=== PATIENT | female | born 1935 | race Caucasian/White ===

== ENCOUNTER 2018-12-22 21:43 | Inpatient (IN) | payer MEDICARE, OTHER ==
[~2018-12-22] VITALS: Ht 165.1 cm; Wt 79.8 kg
[2018-12-22 21:50] VITALS: BP 128/55
--- NOTE | 2018-12-22 21:50 | NUR ---
ED Nurse Note: Pt BIBA for complaint of right sided flank pain 04/25. Pt states pain is sharp and radiates to upper quadrant of abdomen, right under breast. Pt was given norco before brought into ER, state pain has improved slightly with that. Pt on 3L NC, VSS. Showing no signs of distress. Will continue to monitor.
--- NOTE | 2018-12-22 22:17 | Emergency Room Report ---
History of Present Illness General Chief Complaint: Chest Pain Source: Patient, Medical Record Present Illness HPI Patient is an 83-year-old female who presented after increased left-sided stabbing pain. Patient reports having worsening pain with a supine position. This is been present for 4 days. Patient reports having recent weight loss as well as history of chronic pain. She reports having bilateral leg swelling constantly. She states this is unchanged. She denies any fever. She reports having normal bowel movements but has been intermittently constipated. She denies any vomiting or diarrhea. Patient reports having multiple allergies to medications. Allergies: Coded Allergies: AMPICILLIN (Verified Allergy, Unknown, 12/22/18) CARBAMAZEPINE (Verified Allergy, Unknown, 12/22/18) CEPHALEXIN (Verified Allergy, Unknown, 12/22/18) GABAPENTIN (Verified Allergy, Unknown, 12/22/18) HYDROCHLOROTHIAZIDE (Verified Allergy, Unknown, 12/22/18) LOVASTATIN (Verified Allergy, Unknown, 12/22/18) MEXILETINE (Verified Allergy, Unknown, 12/22/18) NEOMYCIN (Verified Allergy, Unknown, 12/22/18) PENICILLINS (Verified Allergy, Unknown, 12/22/18) SULFAMETHOXAZOLE (Verified Allergy, Unknown, 12/22/18) TRIMETHOPRIM (Verified Allergy, Unknown, 12/22/18) VANCOMYCIN (Verified Allergy, Unknown, 12/22/18) Patient History Past Medical History: see triage record Reviewed Nursing Documentation: PMH: Agreed; PSxH: Agreed Nursing Documentation-PMH Hx Hypertension: Yes Hx Asthma: Yes Hx Neurological Problems: Yes - Trigeminal Neuralgia Review of Systems All Other Systems: negative except mentioned in HPI Physical Exam Vital Signs Date Time Temp Pulse Resp B/P (MAP) Pulse Ox O2 Delivery O2 Flow Rate FiO2 12/22/18 21:44 98.1 84 18 95 Room Air Sp02 EP Interpretation: reviewed, normal General Appearance: normal inspection, alert, GCS 15, Chronically Ill Head: atraumatic ENT: normal ENT inspection, hearing grossly normal, normal voice Neck: normal inspection, full range of motion, supple, no bony tend Respiratory: normal inspection, lungs clear, normal breath sounds, no respiratory distress, no retraction, no wheezing Cardiovascular #1: regular rate, rhythm, no edema Gastrointestinal: normal inspection, normal bowel sounds, non tender, soft, no guarding, no hernia Genitourinary: no CVA tenderness Musculoskeletal: normal inspection, back normal, normal range of motion Neurologic: normal inspection, alert, oriented x3, responsive, supervisor record press III-XII nml as tested, speech normal Psychiatric: normal inspection, judgement/insight normal, mood/affect normal Skin: normal inspection, normal color, no rash Medical Decision Making Diagnostic Impression: Primary Impression: Pulmonary embolism ER Course Patient presented for chest pain. Differential diagnoses included but was not limited to pneumonia, unstable angina, pulmonary embolism among others. Because of complexity of patient's case laboratory testing and imaging studies were ordered.Patient's laboratory testing was notable for normal white blood count and negative troponin. Patient was noted to have normal pulse oximetry. she was not noted to be tachycardic CT imaging was ordered due to patient's concerning pain and bilateral leg swelling. CT imaging read by radiology showed pulmonary embolism which was nonobstructing. Patient was given Lovenox. patient was noted to be hemodynamically stable. She does not show any evidence of need for thrombolyzes at this time. Dr. Shi was contacted for for inpatient management Labs Test 12/22/18 22:06 12/23/18 00:45 12/23/18 04:45 Prothrombin Time 10.8 SEC (9.30-11.50) Prothromb Time International Ratio 1.0 (0.9-1.1) Activated Partial Thromboplast Time 28 SEC (23-33) D-Dimer 2.53 mg/L FEU (0.00-0.49) Lactic Acid Level 0.80 mmol/L (0.4-2.0) Total Creatine Kinase 64 U/L (26-308) Creatine Kinase MB < 0.5 NG/ML (0.0-3.6) Creatine Kinase MB Relative Index 0.7 Urine Color Yellow Urine Appearance Slightly cloudy Urine pH 7 (4.5-8.0) Urine Specific [place] 1.005 (1.005-1.035) Urine Protein Negative (NEGATIVE) Urine Glucose (UA) Negative (NEGATIVE) Urine Ketones Negative (NEGATIVE) Urine Blood 1+ (NEGATIVE) Urine Nitrite Positive (NEGATIVE) Urine Bilirubin Negative (NEGATIVE) Urine Urobilinogen 1 MG/DL (0.0-1.0) Urine Leukocyte Esterase 3+ (NEGATIVE) Urine RBC 2-4 /HPF (0 - 2) Urine WBC 10-15 /HPF (0 - 2) Urine Squamous Epithelial Cells Occasional /LPF Urine Bacteria Few /HPF (NONE) White Blood Count 6.4 K/UL (4.8-10.8) Red Blood Count 4.01 M/UL (4.20-5.40) Hemoglobin 11.6 G/DL (12.0-16.0) Hematocrit 35.4 % (37.0-47.0) Mean Corpuscular Volume 88 FL (80-99) Mean Corpuscular Hemoglobin 29.1 PG (27.0-31.0) Mean Corpuscular Hemoglobin Concent 32.9 G/DL (32.0-36.0) Red Cell Distribution Width 13.1 % (11.6-14.8) Platelet Count 180 K/UL (150-450) Mean Platelet Volume 8.7 FL (6.5-10.1) Neutrophils (%) (Auto) 67.7 % (45.0-75.0) Lymphocytes (%) (Auto) 19.7 % (20.0-45.0) Monocytes (%) (Auto) 9.1 % (1.0-10.0) Eosinophils (%) (Auto) 2.5 % (0.0-3.0) Basophils (%) (Auto) 1.0 % (0.0-2.0) Sodium Level 138 MMOL/L (136-145) Potassium Level 4.0 MMOL/L (3.5-5.1) Chloride Level 103 MMOL/L (98-107) Carbon Dioxide Level 30 MMOL/L (21-32) Anion Gap 5 mmol/L (5-15) Blood Urea Nitrogen 10 mg/dL (7-18) Creatinine 0.7 MG/DL (0.55-1.30) Estimat Glomerular Filtration Rate mL/min (>60) Glucose Level 102 MG/DL (74-106) Calcium Level 9.2 MG/DL (8.5-10.1) Magnesium Level 1.9 MG/DL (1.8-2.4) Total Bilirubin 0.7 MG/DL (0.2-1.0) Aspartate Amino Transf (AST/SGOT) 34 U/L (15-37) Alanine Aminotransferase (ALT/SGPT) 40 U/L (12-78) Alkaline Phosphatase 240 U/L (46-116) Troponin I 0.002 ng/mL (0.000-0.056) Total Protein 6.3 G/DL (6.4-8.2) Albumin 2.8 G/DL (3.4-5.0) Globulin 3.5 g/dL Albumin/Globulin Ratio 0.8 (1.0-2.7) EKG Diagnostic Results Rate: normal Rhythm: NSR ST Segments: no acute changes Last Vital Signs Date Time Temp Pulse Resp B/P (MAP) Pulse Ox O2 Delivery O2 Flow Rate FiO2 12/22/18 21:44 98.1 84 18 95 Room Air Status: unchanged Disposition: ADMITTED INPATIENT Condition: Stable Roel Thao MD December 22, 2018 22:17
[2018-12-22] MEDS ORDERED: Isovue-370 150ml vial INJ PRN (22:30)
[2018-12-22 22:32] LABS: BASOPHILS % (AUTO) 0.9 % (0.0-2.0); EOSINOPHILS % (AUTO) 1.3 % (0.0-3.0); HEMATOCRIT 34.1 % (37.0-47.0); HEMOGLOBIN 11.6 G/DL (12.0-16.0); LYMPHOCYTES % (AUTO) 14.9 % (20.0-45.0); MEAN CORPUSCULAR VOLUME 85 FL (80-99); MONOCYTES % (AUTO) 6.7 % (1.0-10.0); NEUTROPHILS % (AUTO) 76.2 % (45.0-75.0); PLATELET COUNT 190 K/UL (150-450); RED CELL DISTRIBUTION WIDTH 12.7 % (11.6-14.8); WHITE BLOOD COUNT 9.8 K/UL (4.8-10.8)
[2018-12-22] MEDS ORDERED: DULCOLAX SUPP RC (22:41)
[2018-12-22] MEDS ORDERED: IMITREX50 MG ORAL (22:41)
[2018-12-22] MEDS ORDERED: KADIAN10 MG ORAL (22:41)
[2018-12-22] MEDS ORDERED: VITAMIN D1000 UNI1 ORAL (22:41)
[2018-12-22] MEDS ORDERED: COLACE100 MG ORAL (22:41)
[2018-12-22] MEDS ORDERED: ACETAMINOPHEN325 M1 ORAL (22:41)
[2018-12-22] MEDS ORDERED: GERI-DRYL25 M1 PO (22:41)
[2018-12-22] MEDS ORDERED: CYMBALTA60 MG ORAL (22:41)
[2018-12-22 22:44] LABS: ANION GAP 7 mmol/L (5-15); BLOOD UREA NITROGEN 12 mg/dL (7-18); CALCIUM 9.4 MG/DL (8.5-10.1); CARBON DIOXIDE 30 MMOL/L (21-32); CHLORIDE 99 MMOL/L (98-107); CREATININE 0.8 MG/DL (0.55-1.30); POTASSIUM 4.5 MMOL/L (3.5-5.1); SODIUM 136 MMOL/L (136-145)
[2018-12-22 22:58] LABS: ALANINE AMINOTRANSFERASE 48 U/L (12-78); ALBUMIN/GLOBULIN RATIO 0.8 (1.0-2.7); ALKALINE PHOSPHATASE 265 U/L (46-116); ASPARTATE AMINO TRANSFERASE 56 U/L (15-37); BILIRUBIN,TOTAL 0.8 MG/DL (0.2-1.0); CKMB < 0.5 NG/ML (0.0-3.6); CREATINE KINASE 64 U/L (26-308)
[2018-12-22] MEDS ORDERED: Aspirin Baby 81mg ORAL ONE (23:00)
[2018-12-23] VITALS: BP 138/111
[2018-12-23] MEDS ORDERED: NORCO 5-325 TA1 EACH ORAL ×2 (00:02→19:14)
[2018-12-23] MEDS ORDERED: LOSARTAN POTASS50 MG ORAL (00:02)
[2018-12-23] MEDS ORDERED: MILK OF MA400 MG/51 ORAL (00:02)
[2018-12-23] MEDS ORDERED: VALACYCLOVIR1000 MG ORAL (00:05)
[2018-12-23] MEDS ORDERED: SYMBICORT 1601 PUFFS INH ×2 (00:05→19:11)
[2018-12-23] MEDS ORDERED: VESICARE10 MG ORAL ×2 (00:05→19:18)
[2018-12-23] MEDS ORDERED: DITROPAN10 MG ORAL (00:05)
[2018-12-23] MEDS ORDERED: Enoxaparin 80mg Inj SUBQ ONE (00:15)
--- NOTE | 2018-12-23 00:30 | NUR ---
ED Nurse Note: Pt transferred to Telemetry Unit. Report given to Donita Presley RN. Pt A/Ox4, showing no signs of acute distress. All belongings taken upstairs with patient along with belongings list. VSS. Pt hooked up to youth nutritional monitor, accompanied by RN and jboss architect.
--- NOTE | 2018-12-23 00:35 | NUR ---
NURSE NOTES: BEDSIDE REPORT RECEIVED FROM ALEJANDRA ZELAYA. PT IS X4, ABLE TO MAKE NEEDS KNOWN. 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 ON RA; SATING WELL. NO S/S OF ACUTE DISTRESS NOTED. SKIN IS CLEAN, DRY, INTACT. BLANCHABLE REDNESS ON SACRUM AND HEELS. TURNED PT TO RELIEVE PRESSURE, AND OFF LOADED HEELS. IV SITE IS LH 22; ASYMPTOMATIC. LABS OK, D-DIMER ELEVATED, TROP WAS NEGATIVE. WILL CONTACT PHYSICIAN TO GET ADMIT ORDERS. BED IS LOCKED IN LOWEST POSITION, SR X3, CALL GLEASON W/ IN REACH, BED ALARM ON. WILL CONTINUE TO MONITOR AND FOLLOW W/ PLAN OF CARE.
--- NOTE | 2018-12-23 01:10 | NUR ---
NURSE NOTES: CALLED AND LEFT A MESSAGE FOR DR. LOGAN REGARDING ADMIT ORDERS. #[phone]. WILL AWAIT A RETURN CALL AND CONTINUE TO MONITOR.
[2018-12-23 01:31] LABS: APPEARANCE,URINE SLIGHTLY CLOUDY; BILIRUBIN, URINE NEGATIVE (NEGATIVE); GLUCOSE, URINE (UA) NEGATIVE (NEGATIVE); KETONES,URINE NEGATIVE (NEGATIVE); LEUKOCYTE ESTERASE ,URINE 3+ (NEGATIVE); NITRITE,URINE POSITIVE (NEGATIVE); PH,URINE 7 (4.5-8.0); PROTEIN,URINE NEGATIVE (NEGATIVE); UROBILINOGEN,URINE 1 MG/DL (0.0-1.0)
[2018-12-23 01:33] LABS: COLOR,URINE YELLOW
[2018-12-23] MEDS ORDERED: Milk of Magnesia 30ml Ud ORAL PRN (02:45)
[2018-12-23] MEDS ORDERED: SUMAtriptan 50mg tab ORAL PRN (02:45)
[2018-12-23] MEDS ORDERED: HYDROcodone/Acetamin 5/325 tab ORAL PRN ×2 (02:45→05:00)
[2018-12-23 04:00] VITALS: BP 119/50
[2018-12-23 06:35] LABS: EOSINOPHILS % (AUTO) 2.5 % (0.0-3.0); HEMATOCRIT 35.4 % (37.0-47.0); HEMOGLOBIN 11.6 G/DL (12.0-16.0); LYMPHOCYTES % (AUTO) 19.7 % (20.0-45.0); MEAN CORPUSCULAR VOLUME 88 FL (80-99); MONOCYTES % (AUTO) 9.1 % (1.0-10.0); NEUTROPHILS % (AUTO) 67.7 % (45.0-75.0); PLATELET COUNT 180 K/UL (150-450); RED BLOOD COUNT 4.01 M/UL (4.20-5.40); RED CELL DISTRIBUTION WIDTH 13.1 % (11.6-14.8); WHITE BLOOD COUNT 6.4 K/UL (4.8-10.8)
[2018-12-23 06:46] LABS: ALANINE AMINOTRANSFERASE 40 U/L (12-78); ALBUMIN 2.8 G/DL (3.4-5.0); ALBUMIN/GLOBULIN RATIO 0.8 (1.0-2.7); ALKALINE PHOSPHATASE 240 U/L (46-116); ANION GAP 5 mmol/L (5-15); ASPARTATE AMINO TRANSFERASE 34 U/L (15-37); BILIRUBIN,TOTAL 0.7 MG/DL (0.2-1.0); BLOOD UREA NITROGEN 10 mg/dL (7-18); CALCIUM 9.2 MG/DL (8.5-10.1); CARBON DIOXIDE 30 MMOL/L (21-32); CHLORIDE 103 MMOL/L (98-107); CREATININE 0.7 MG/DL (0.55-1.30); SODIUM 138 MMOL/L (136-145)
--- NOTE | 2018-12-23 07:00 | NUR ---
OBTAINED REPORT FROM RAVIN ROBERTS, ASSUMED PT CARE.
[2018-12-23 08:00] VITALS: BP 99/50
--- NOTE | 2018-12-23 08:08 | NUR ---
CASE MANAGEMENT:REVIEW 83 YR OLD FEMALE BIBA FROM [facility] CC: CHEST PAIN AND LT FLANK PAIN SI: ACS 98.0 84 18 128/55 95% ON RA GLUCOSE+115 TROPONIN(-) IS: ASA PO LOVENOX CTA CHEST CHEST XRAY BLOOD CX : TO TELEMETRY IS: SYMBICORT INH BID COZAAR PO QD LOVENOX SQ QD PLAN: PT EVAL VENOUS DUPLEX 2DECHO
[2018-12-23] MEDS ORDERED: Enoxaparin 40mg Inj SUBQ SCH (09:00)
[2018-12-23] MEDS ORDERED: valACYclovir HCL 500mg tab ORAL SCH (09:00)
[2018-12-23] MEDS ORDERED: DULoxetine 30mg cap ORAL SCH (09:00)
[2018-12-23] MEDS ORDERED: Docusate 100mg cap ORAL SCH (09:00)
[2018-12-23] MEDS ORDERED: Oxybutynin 5mg tab ORAL SCH (09:00)
[2018-12-23] MEDS ORDERED: Vitamin D 1000 IU Tab ORAL SCH (09:00)
[2018-12-23] MEDS ORDERED: Losartan 50mg tab ORAL SCH (09:00)
--- NOTE | 2018-12-23 09:18 | NUR ---
Doctor Rae Tamayo made aware of most current labs including troponin level 0.002 and results of venous duplex (positive for DVT). No new orders noted. Addendum: 12/23/18 at 0922 by Carmen Quiroga RN MD notified of echo results (60-65%). No new orders noted.
--- NOTE | 2018-12-23 10:01 | History and Physical ---
History of Present Illness General Date patient seen: December 23, 2018 Time patient seen: 09:00 Reason for Hospitalization: Chest Pain Present Illness HPI 83-year-old female with history of HTN, obesity, asthma, trigeminal neuralgia, chronic pain, migraines, spinal fusion who presented from [facility] with sharp left-sided stabbing pain 05/25. Patient reports having worsening pain with a supine position and dyspnea and pleuritic pain. Symptoms present for 4 days. She reports having blood clot in 1994, was on warfarin for this but not currently. Denies any history of excessive bleeding, no PUD, GERD. In ED she was found to have PE along with acute right popliteal DVT, left common femoral acute DVT. Started on therapeutic Lovenox Social History: No alcohol or tobacco Family History: No premature CAD Allergies: Coded Allergies: AMPICILLIN (Verified Allergy, Unknown, 12/22/18) CARBAMAZEPINE (Verified Allergy, Unknown, 12/22/18) CEPHALEXIN (Verified Allergy, Unknown, 12/22/18) GABAPENTIN (Verified Allergy, Unknown, 12/22/18) HYDROCHLOROTHIAZIDE (Verified Allergy, Unknown, 12/22/18) LOVASTATIN (Verified Allergy, Unknown, 12/22/18) MEXILETINE (Verified Allergy, Unknown, 12/22/18) NEOMYCIN (Verified Allergy, Unknown, 12/22/18) PENICILLINS (Verified Allergy, Unknown, 12/22/18) SULFAMETHOXAZOLE (Verified Allergy, Unknown, 12/22/18) TRIMETHOPRIM (Verified Allergy, Unknown, 12/22/18) VANCOMYCIN (Verified Allergy, Unknown, 12/22/18) Medication History Scheduled Budesonide/Formoterol Fumarate (Symbicort 160-4.5 Mcg Inhaler), 2 PUFF INH TWICE A DAY, (Reported) Cholecalciferol (Vitamin D3)* (Vitamin D*), 2,000 UNITS ORAL DAILY, (Reported) Docusate Sodium* (Colace*), 100 MG ORAL DAILY, (Reported) Duloxetine Hcl* (Cymbalta*), 60 MG ORAL DAILY, (Reported) Losartan Potassium* (Losartan Potassium*), 100 MG ORAL DAILY, (Reported) Oxybutynin Chloride (Oxybutynin Chloride), 10 MG ORAL DAILY, (Reported) Solifenacin Succinate (Vesicare*), 10 MG ORAL DAILY, (Reported) Valacyclovir Hcl (Valacyclovir), 500 MG ORAL DAILY, (Reported) Scheduled PRN Acetaminophen* (Acetaminophen 325MG Tablet*), 650 MG ORAL Q6H PRN for Mild Pain/ Temp > 100.5, (Reported) Diphenhydramine HCl (Candelaria-Dryl), 25 MG PO Q6HR PRN for Itching, (Reported) Hydrocodone Bit/Acetaminophen 5-325* ([place] 5-325*), 1 TAB ORAL Q6H PRN for For Pain, (Reported) Magnesium Hydroxide* (Milk Of Magnesia*), 30 ML ORAL DAILY PRN for Constipation, (Reported) Morphine Sulfate (Maria Luz), 10 MG ORAL Q12HR PRN for Pain Scale (6-10), (Reported ) Sumatriptan Succinate* (Imitrex*), 50 MG ORAL DAILY PRN MIGRAINE PRN for For Headache, (Reported) [Dulcolax Supp], 10 MG RC DAILY PRN for Constipation, (Reported) Patient History Healthcare decision maker SELF Resuscitation status Do Not Resuscitate Advanced Directive on File No Review of Systems Respiratory: Denies: cough Cardiovascular: Reports: chest pain Gastrointestinal: Denies: abdominal pain Genitourinary: Denies: dysuria Neurological: Denies: headache Physical Exam General Appearance: no apparent distress, alert HEENT: atraumatic, anicteric, mucous membranes moist Neck: normal alignment, supple Respiratory/Chest: lungs clear, normal breath sounds, no respiratory distress, no accessory muscle use Cardiovascular/Chest: normal rate, regular rhythm Abdomen: non tender, soft Extremities: calf tenderness Skin Exam: normal pigmentation, warm/dry Neurologic: blade changer II-XII grossly normal, no motor/sensory deficits, alert, oriented x 3 Last 24 Hour Vital Signs Date Time Temp Pulse Resp B/P (MAP) Pulse Ox O2 Delivery O2 Flow Rate FiO2 12/23/18 09:40 88 18 97 Room Air 21 12/23/18 09:33 85 18 97 Room Air 21 12/23/18 09:00 Room Air 12/23/18 08:46 99/50 12/23/18 08:00 88 12/23/18 08:00 97.8 91 18 99/50 (66) 95 12/23/18 04:00 96.6 84 18 119/50 (73) 95 12/23/18 01:15 Room Air 12/23/18 00:30 98.0 83 18 111/67 97 Room Air 12/23/18 00:00 88 12/23/18 00:00 96.8 86 20 138/111 (120) 96 12/22/18 21:50 84 18 Nasal Cannula 3.0 12/22/18 21:50 98.1 69 18 128/55 95 Room Air 12/22/18 21:44 98.1 84 18 95 Room Air Intake and Output 12/22/18 12/23/18 19:00 07:00 Intake Total 120 ml Balance 120 ml Intake Oral 120 ml Laboratory Tests Test 12/22/18 22:06 12/23/18 00:45 12/23/18 04:45 White Blood Count 9.8 K/UL (4.8-10.8) 6.4 K/UL (4.8-10.8) Red Blood Count 4.00 M/UL (4.20-5.40) L 4.01 M/UL (4.20-5.40) L Hemoglobin 11.6 G/DL (12.0-16.0) L 11.6 G/DL (12.0-16.0) L Hematocrit 34.1 % (37.0-47.0) L 35.4 % (37.0-47.0) L Mean Corpuscular Volume 85 FL (80-99) 88 FL (80-99) Mean Corpuscular Hemoglobin 29.1 PG (27.0-31.0) 29.1 PG (27.0-31.0) Mean Corpuscular Hemoglobin Concent 34.1 G/DL (32.0-36.0) 32.9 G/DL (32.0-36.0) Red Cell Distribution Width 12.7 % (11.6-14.8) 13.1 % (11.6-14.8) Platelet Count 190 K/UL (150-450) 180 K/UL (150-450) Mean Platelet Volume 7.9 FL (6.5-10.1) 8.7 FL (6.5-10.1) Neutrophils (%) (Auto) 76.2 % (45.0-75.0) H 67.7 % (45.0-75.0) Lymphocytes (%) (Auto) 14.9 % (20.0-45.0) L 19.7 % (20.0-45.0) L Monocytes (%) (Auto) 6.7 % (1.0-10.0) 9.1 % (1.0-10.0) Eosinophils (%) (Auto) 1.3 % (0.0-3.0) 2.5 % (0.0-3.0) Basophils (%) (Auto) 0.9 % (0.0-2.0) 1.0 % (0.0-2.0) Prothrombin Time 10.8 SEC (9.30-11.50) Prothromb Time International Ratio 1.0 (0.9-1.1) Activated Partial Thromboplast Time 28 SEC (23-33) D-Dimer 2.53 mg/L FEU (0.00-0.49) H Sodium Level 136 MMOL/L (136-145) 138 MMOL/L (136-145) Potassium Level 4.5 MMOL/L (3.5-5.1) 4.0 MMOL/L (3.5-5.1) Chloride Level 99 MMOL/L (98-107) 103 MMOL/L (98-107) Carbon Dioxide Level 30 MMOL/L (21-32) 30 MMOL/L (21-32) Anion Gap 7 mmol/L (5-15) 5 mmol/L (5-15) Blood Urea Nitrogen 12 mg/dL (7-18) 10 mg/dL (7-18) Creatinine 0.8 MG/DL (0.55-1.30) 0.7 MG/DL (0.55-1.30) Estimat Glomerular Filtration Rate mL/min (>60) mL/min (>60) Glucose Level 115 MG/DL (74-106) H 102 MG/DL (74-106) Lactic Acid Level 0.80 mmol/L (0.4-2.0) Calcium Level 9.4 MG/DL (8.5-10.1) 9.2 MG/DL (8.5-10.1) Total Bilirubin 0.8 MG/DL (0.2-1.0) 0.7 MG/DL (0.2-1.0) Aspartate Amino Transf (AST/SGOT) 56 U/L (15-37) H 34 U/L (15-37) Alanine Aminotransferase (ALT/SGPT) 48 U/L (12-78) 40 U/L (12-78) Alkaline Phosphatase 265 U/L (46-116) H 240 U/L (46-116) H Total Creatine Kinase 64 U/L (26-308) Creatine Kinase MB < 0.5 NG/ML (0.0-3.6) Creatine Kinase MB Relative Index 0.7 Troponin I 0.000 ng/mL (0.000-0.056) 0.002 ng/mL (0.000-0.056) Total Protein 6.8 G/DL (6.4-8.2) 6.3 G/DL (6.4-8.2) L Albumin 3.0 G/DL (3.4-5.0) L 2.8 G/DL (3.4-5.0) L Globulin 3.8 g/dL 3.5 g/dL Albumin/Globulin Ratio 0.8 (1.0-2.7) L 0.8 (1.0-2.7) L Urine Color Yellow Urine Appearance Slightly cloudy Urine pH 7 (4.5-8.0) Urine Specific [place] 1.005 (1.005-1.035) Urine Protein Negative (NEGATIVE) Urine Glucose (UA) Negative (NEGATIVE) Urine Ketones Negative (NEGATIVE) Urine Blood 1+ (NEGATIVE) H Urine Nitrite Positive (NEGATIVE) H Urine Bilirubin Negative (NEGATIVE) Urine Urobilinogen 1 MG/DL (0.0-1.0) H Urine Leukocyte Esterase 3+ (NEGATIVE) H Urine RBC 2-4 /HPF (0 - 2) H Urine WBC 10-15 /HPF (0 - 2) H Urine Squamous Epithelial Cells Occasional /LPF Urine Bacteria Few /HPF (NONE) Magnesium Level 1.9 MG/DL (1.8-2.4) Height (Feet): 5 Height (Inches): 5.00 Weight (Pounds): 176 Medications Current Medications Medications (Trade) Dose Ordered Sig/Gail Route PRN Reason Start Time Stop Time Status Last Admin Dose Admin Acetaminophen (Tylenol) 650 mg Q6H PRN ORAL Mild Pain/Temp > 100.5 12/23/18 02:45 01/22/19 02:44 Acetaminophen/ Hydrocodone Bitart ([place] 5/325) 1 tab Q6H PRN ORAL Moderate Pain (Pain Scale 4-6) 12/23/18 05:00 12/30/18 04:59 Budesonide/ Formoterol Fumarate (Symbicort 160/ 4.5) 2 puff BIDRT INH 12/23/18 10:00 01/22/19 09:59 12/23/18 09:33 Diphenhydramine HCl (Benadryl) 25 mg Q6H PRN ORAL Itching 12/23/18 02:45 01/22/19 02:44 Docusate Sodium (Colace) 100 mg DAILY ORAL 12/23/18 09:00 01/22/19 08:59 Duloxetine HCl (Cymbalta) 60 mg DAILY ORAL 12/23/18 09:00 01/22/19 08:59 12/23/18 08:46 Enoxaparin Sodium (Lovenox) 40 mg DAILY SUBQ 12/23/18 09:00 01/22/19 08:59 12/23/18 08:45 Iopamidol (Isovue-370 150ml) 150 ml NOW PRN INJ Radiology Procedure 12/22/18 22:30 12/24/18 22:17 Losartan Potassium (Cozaar) 100 mg DAILY ORAL 12/23/18 09:00 01/22/19 08:59 Magnesium Hydroxide (Mom) 30 ml DAILY PRN ORAL Constipation 12/23/18 02:45 01/22/19 02:44 Oxybutynin Chloride (Ditropan) 10 mg DAILY ORAL 12/23/18 09:00 01/22/19 08:59 12/23/18 08:45 Solifenacin (Vesicare) 10 mg DAILY ORAL 12/23/18 09:00 01/22/19 08:59 12/23/18 08:45 Sumatriptan Succinate (Imitrex) 50 mg DAILY PRN ORAL For Headache 12/23/18 02:45 01/22/19 02:44 Valacyclovir HCl (Valtrex) 500 mg EVERY 12 HOURS ORAL 12/23/18 09:00 01/22/19 08:59 12/23/18 08:43 Vitamin D (Vitamin D) 2,000 intlu DAILY ORAL 12/23/18 09:00 01/22/19 08:59 12/23/18 08:45 Assessment/Plan Assessment/Plan: #Bilateral PE #Left pleural effusion #History of asthma -Stable respiratory status -Monitor oxygen saturation -Continue Lovenox 1mg/Kg bid and transition to DOAC -Will need lifelong anticoagulation given recurrence -Check TTE -Pulm and Cards eval -continue Symbicort and prn nebs #History of HTN -continue losartan -monitor pressures #Chronic pain #Migraines -continue Imitrex, [place] and Cymbalta -Neurology eval Full Code VTE PPx Lovenox I spent 70 minutes on this patient's case, and 35 minutes was dedicated to counseling and/or care coordination. Jericho Tamayo MD December 23, 2018 10:01
--- NOTE | 2018-12-23 10:07 | NUR ---
PT Note Acknowledged order for PT eval/tx. Venous duplex was done and is positive for acute right popliteal DVT and left common femoral acute DVT. Patient's INR is subtherapeutic (1.0). Will hold PT for now till INR is at therapeutic level.
--- NOTE | 2018-12-23 10:36 | NUR ---
*-* INSURANCE *-* ALL CLINICALS AND REVIEWS HAVE BEEN FAXED TO: [employer] NGO:[email or web address] P:[phone] F: [phone]
--- NOTE | 2018-12-23 11:24 | Diagnostic Imaging Report ---
Indication: Chest pain on the left side. 83-year-old female Technique: Continuous helical transaxial imaging of the chest was obtained from the thoracic inlet to the upper abdomen during rapid intravenous contrast administration. Arterial phase of enhancement obtained. Coronal 2-D reformats were also obtained and maximum intensity projection images in multiple planes. Study obtained in a Siemens sensation [address] Automatic Exposure Control was utilized. Total Dose length Product (DLP): 778.[address] Dose Index Volume (CTDIvol): 24.9 mGy Comparison: None Findings: There are multiple filling defects within branches of the pulmonary artery. On the left side there is a prominent filling defect that is occlusive to near occlusive within the left lower lobe branch extending into multiple segmental branches. On the right, there is thrombus at the bifurcation of the right pulmonary artery trunk with nonocclusive thrombi and filling defects extending into portions of upper and lower lobe branches. The pulmonary emboli on the right are nonocclusive. No obvious signs of right heart strain on this examination. There is mild generalized cardiomegaly. There is no IVC or reflux. There is a small left pleural effusion present. Hazy groundglass opacities are noted at the left lung base with some reticular densities. Developing pulmonary infarct not excluded. Mild right posterior basal atelectasis demonstrated. There is breathing motion artifact. Hiatal hernia noted. Aortoiliac calcifications are present. There is loss of height at T9 vertebra consistent with a compression fracture deformity. Acuity of this injury is unknown but may be old. Correlate clinically. IMPRESSION: Acute bilateral pulmonary emboli as described above. Groundglass opacification left lung base and a small left pleural effusion. Developing pulmonary infarction versus pneumonia. Atherosclerotic vascular disease. Acuity indeterminate T9 vertebral fracture. [facility] has communicated the preliminary results to the Emergency Department. Their findings are largely concordant with this report. The CT scanner at [facility] is accredited by the [employer] and the scans are performed using dose optimization techniques as appropriate to a performed exam including Automatic Exposure control.
[2018-12-23 12:00] VITALS: BP 124/62
--- NOTE | 2018-12-23 12:19 | Diagnostic Imaging Report ---
Indication: Chest pain Comparison: None A single view chest radiograph was obtained. Findings: No definite infiltrate or pulmonary vascular congestion identified. The heart is enlarged. The aorta is mildly enlarged consistent with atherosclerotic vascular disease. The bones are osteopenic. Impression: No acute disease
--- NOTE | 2018-12-23 13:37 | Consultation ---
History of Present Illness General Chief Complaint: Chest Pain Present Illness Allergies: Coded Allergies: AMPICILLIN (Verified Allergy, Unknown, 12/22/18) CARBAMAZEPINE (Verified Allergy, Unknown, 12/22/18) CEPHALEXIN (Verified Allergy, Unknown, 12/22/18) GABAPENTIN (Verified Allergy, Unknown, 12/22/18) HYDROCHLOROTHIAZIDE (Verified Allergy, Unknown, 12/22/18) LOVASTATIN (Verified Allergy, Unknown, 12/22/18) MEXILETINE (Verified Allergy, Unknown, 12/22/18) NEOMYCIN (Verified Allergy, Unknown, 12/22/18) PENICILLINS (Verified Allergy, Unknown, 12/22/18) SULFAMETHOXAZOLE (Verified Allergy, Unknown, 12/22/18) TRIMETHOPRIM (Verified Allergy, Unknown, 12/22/18) VANCOMYCIN (Verified Allergy, Unknown, 12/22/18) Medication History Scheduled Budesonide/Formoterol Fumarate (Symbicort 160-4.5 Mcg Inhaler), 2 PUFF INH TWICE A DAY, (Reported) Cholecalciferol (Vitamin D3)* (Vitamin D*), 2,000 UNITS ORAL DAILY, (Reported) Docusate Sodium* (Colace*), 100 MG ORAL DAILY, (Reported) Duloxetine Hcl* (Cymbalta*), 60 MG ORAL DAILY, (Reported) Losartan Potassium* (Losartan Potassium*), 100 MG ORAL DAILY, (Reported) Oxybutynin Chloride (Oxybutynin Chloride), 10 MG ORAL DAILY, (Reported) Solifenacin Succinate (Vesicare*), 10 MG ORAL DAILY, (Reported) Valacyclovir Hcl (Valacyclovir), 500 MG ORAL DAILY, (Reported) Scheduled PRN Acetaminophen* (Acetaminophen 325MG Tablet*), 650 MG ORAL Q6H PRN for Mild Pain/ Temp > 100.5, (Reported) Diphenhydramine HCl (Candelaria-Dryl), 25 MG PO Q6HR PRN for Itching, (Reported) Hydrocodone Bit/Acetaminophen 5-325* (Loring 5-325*), 1 TAB ORAL Q6H PRN for For Pain, (Reported) Magnesium Hydroxide* (Milk Of Magnesia*), 30 ML ORAL DAILY PRN for Constipation, (Reported) Morphine Sulfate (Maria Luz), 10 MG ORAL Q12HR PRN for Pain Scale (6-10), (Reported ) Sumatriptan Succinate* (Imitrex*), 50 MG ORAL DAILY PRN MIGRAINE PRN for For Headache, (Reported) [Dulcolax Supp], 10 MG RC DAILY PRN for Constipation, (Reported) Patient History Healthcare decision maker SELF Resuscitation status Do Not Resuscitate Advanced Directive on File No Physical Exam Last 24 Hour Vital Signs Date Time Temp Pulse Resp B/P (MAP) Pulse Ox O2 Delivery O2 Flow Rate FiO2 12/23/18 12:00 97.3 91 20 124/62 (82) 97 12/23/18 12:00 88 12/23/18 09:40 88 18 97 Room Air 21 12/23/18 09:33 85 18 97 Room Air 21 12/23/18 09:00 Room Air 12/23/18 08:46 99/50 12/23/18 08:00 88 12/23/18 08:00 97.8 91 18 99/50 (66) 95 12/23/18 04:00 96.6 84 18 119/50 (73) 95 12/23/18 01:15 Room Air 12/23/18 00:30 98.0 83 18 111/67 97 Room Air 12/23/18 00:00 88 12/23/18 00:00 96.8 86 20 138/111 (120) 96 12/22/18 21:50 84 18 Nasal Cannula 3.0 12/22/18 21:50 98.1 69 18 128/55 95 Room Air 12/22/18 21:44 98.1 84 18 95 Room Air Intake and Output 12/22/18 12/23/18 18:59 06:59 Intake Total 120 ml Balance 120 ml Intake Oral 120 ml Laboratory Tests Test 12/22/18 22:06 12/23/18 00:45 12/23/18 04:45 White Blood Count 9.8 K/UL (4.8-10.8) 6.4 K/UL (4.8-10.8) Red Blood Count 4.00 M/UL (4.20-5.40) L 4.01 M/UL (4.20-5.40) L Hemoglobin 11.6 G/DL (12.0-16.0) L 11.6 G/DL (12.0-16.0) L Hematocrit 34.1 % (37.0-47.0) L 35.4 % (37.0-47.0) L Mean Corpuscular Volume 85 FL (80-99) 88 FL (80-99) Mean Corpuscular Hemoglobin 29.1 PG (27.0-31.0) 29.1 PG (27.0-31.0) Mean Corpuscular Hemoglobin Concent 34.1 G/DL (32.0-36.0) 32.9 G/DL (32.0-36.0) Red Cell Distribution Width 12.7 % (11.6-14.8) 13.1 % (11.6-14.8) Platelet Count 190 K/UL (150-450) 180 K/UL (150-450) Mean Platelet Volume 7.9 FL (6.5-10.1) 8.7 FL (6.5-10.1) Neutrophils (%) (Auto) 76.2 % (45.0-75.0) H 67.7 % (45.0-75.0) Lymphocytes (%) (Auto) 14.9 % (20.0-45.0) L 19.7 % (20.0-45.0) L Monocytes (%) (Auto) 6.7 % (1.0-10.0) 9.1 % (1.0-10.0) Eosinophils (%) (Auto) 1.3 % (0.0-3.0) 2.5 % (0.0-3.0) Basophils (%) (Auto) 0.9 % (0.0-2.0) 1.0 % (0.0-2.0) Prothrombin Time 10.8 SEC (9.30-11.50) Prothromb Time International Ratio 1.0 (0.9-1.1) Activated Partial Thromboplast Time 28 SEC (23-33) D-Dimer 2.53 mg/L FEU (0.00-0.49) H Sodium Level 136 MMOL/L (136-145) 138 MMOL/L (136-145) Potassium Level 4.5 MMOL/L (3.5-5.1) 4.0 MMOL/L (3.5-5.1) Chloride Level 99 MMOL/L (98-107) 103 MMOL/L (98-107) Carbon Dioxide Level 30 MMOL/L (21-32) 30 MMOL/L (21-32) Anion Gap 7 mmol/L (5-15) 5 mmol/L (5-15) Blood Urea Nitrogen 12 mg/dL (7-18) 10 mg/dL (7-18) Creatinine 0.8 MG/DL (0.55-1.30) 0.7 MG/DL (0.55-1.30) Estimat Glomerular Filtration Rate mL/min (>60) mL/min (>60) Glucose Level 115 MG/DL (74-106) H 102 MG/DL (74-106) Lactic Acid Level 0.80 mmol/L (0.4-2.0) Calcium Level 9.4 MG/DL (8.5-10.1) 9.2 MG/DL (8.5-10.1) Total Bilirubin 0.8 MG/DL (0.2-1.0) 0.7 MG/DL (0.2-1.0) Aspartate Amino Transf (AST/SGOT) 56 U/L (15-37) H 34 U/L (15-37) Alanine Aminotransferase (ALT/SGPT) 48 U/L (12-78) 40 U/L (12-78) Alkaline Phosphatase 265 U/L (46-116) H 240 U/L (46-116) H Total Creatine Kinase 64 U/L (26-308) Creatine Kinase MB < 0.5 NG/ML (0.0-3.6) Creatine Kinase MB Relative Index 0.7 Troponin I 0.000 ng/mL (0.000-0.056) 0.002 ng/mL (0.000-0.056) Total Protein 6.8 G/DL (6.4-8.2) 6.3 G/DL (6.4-8.2) L Albumin 3.0 G/DL (3.4-5.0) L 2.8 G/DL (3.4-5.0) L Globulin 3.8 g/dL 3.5 g/dL Albumin/Globulin Ratio 0.8 (1.0-2.7) L 0.8 (1.0-2.7) L Urine Color Yellow Urine Appearance Slightly cloudy Urine pH 7 (4.5-8.0) Urine Specific [place] 1.005 (1.005-1.035) Urine Protein Negative (NEGATIVE) Urine Glucose (UA) Negative (NEGATIVE) Urine Ketones Negative (NEGATIVE) Urine Blood 1+ (NEGATIVE) H Urine Nitrite Positive (NEGATIVE) H Urine Bilirubin Negative (NEGATIVE) Urine Urobilinogen 1 MG/DL (0.0-1.0) H Urine Leukocyte Esterase 3+ (NEGATIVE) H Urine RBC 2-4 /HPF (0 - 2) H Urine WBC 10-15 /HPF (0 - 2) H Urine Squamous Epithelial Cells Occasional /LPF Urine Bacteria Few /HPF (NONE) Magnesium Level 1.9 MG/DL (1.8-2.4) Height (Feet): 5 Height (Inches): 5.00 Weight (Pounds): 176 Medications Current Medications Medications (Trade) Dose Ordered Sig/Gail Route PRN Reason Start Time Stop Time Status Last Admin Dose Admin Acetaminophen (Tylenol) 650 mg Q6H PRN ORAL Mild Pain/Temp > 100.5 12/23/18 02:45 01/22/19 02:44 Acetaminophen/ Hydrocodone Bitart (Loring 5/325) 1 tab Q6H PRN ORAL Moderate Pain (Pain Scale 4-6) 12/23/18 05:00 12/30/18 04:59 Budesonide/ Formoterol Fumarate (Symbicort 160/ 4.5) 2 puff BIDRT INH 12/23/18 10:00 01/22/19 09:59 12/23/18 09:33 Diphenhydramine HCl (Benadryl) 25 mg Q6H PRN ORAL Itching 12/23/18 02:45 01/22/19 02:44 Docusate Sodium (Colace) 100 mg DAILY ORAL 12/23/18 09:00 01/22/19 08:59 Duloxetine HCl (Cymbalta) 60 mg DAILY ORAL 12/23/18 09:00 01/22/19 08:59 12/23/18 08:46 Enoxaparin Sodium (Lovenox) 40 mg DAILY SUBQ 12/23/18 09:00 01/22/19 08:59 12/23/18 08:45 Enoxaparin Sodium (Lovenox) 120 mg Q24H SUBQ 12/23/18 13:30 01/22/19 13:29 UNV Iopamidol (Isovue-370 150ml) 150 ml NOW PRN INJ Radiology Procedure 12/22/18 22:30 12/24/18 22:17 Losartan Potassium (Cozaar) 100 mg DAILY ORAL 12/23/18 09:00 01/22/19 08:59 Magnesium Hydroxide (Mom) 30 ml DAILY PRN ORAL Constipation 12/23/18 02:45 01/22/19 02:44 Oxybutynin Chloride (Ditropan) 10 mg DAILY ORAL 12/23/18 09:00 01/22/19 08:59 12/23/18 08:45 Solifenacin (Vesicare) 10 mg DAILY ORAL 12/23/18 09:00 01/22/19 08:59 12/23/18 08:45 Sumatriptan Succinate (Imitrex) 50 mg DAILY PRN ORAL For Headache 12/23/18 02:45 01/22/19 02:44 Valacyclovir HCl (Valtrex) 500 mg EVERY 12 HOURS ORAL 12/23/18 09:00 01/22/19 08:59 12/23/18 08:43 Vitamin D (Vitamin D) 2,000 intlu DAILY ORAL 12/23/18 09:00 01/22/19 08:59 12/23/18 08:45 Assessment/Plan Assessment/Plan: Hematology Consultation REQ MD: Bebe Tamayo Reason for Hospitalization: Chest Pain DOS: 12/23/18 RFC: DVT bilaterally ID 83-year-old female with history of HTN, obesity, asthma, trigeminal neuralgia, chronic pain, migraines, spinal fusion who presented from [facility] with sharp left-sided stabbing pain 05/25. Patient reports having worsening pain with a supine position and dyspnea and pleuritic pain. Symptoms present for 4 days. She reports having blood clot in 1994, was on warfarin for this but not currently. Denies any history of excessive bleeding, no PUD, GERD. In ED she was found to have PE along with acute right popliteal DVT, left common femoral acute DVT. Started on therapeutic Lovenox at this time, heme was consulted for eval Social History: No alcohol or tobacco Family History: No premature CAD Allergies: Coded Allergies: AMPICILLIN (Verified Allergy, Unknown, 12/22/18) CARBAMAZEPINE (Verified Allergy, Unknown, 12/22/18) CEPHALEXIN (Verified Allergy, Unknown, 12/22/18) GABAPENTIN (Verified Allergy, Unknown, 12/22/18) HYDROCHLOROTHIAZIDE (Verified Allergy, Unknown, 12/22/18) LOVASTATIN (Verified Allergy, Unknown, 12/22/18) MEXILETINE (Verified Allergy, Unknown, 12/22/18) NEOMYCIN (Verified Allergy, Unknown, 12/22/18) PENICILLINS (Verified Allergy, Unknown, 12/22/18) SULFAMETHOXAZOLE (Verified Allergy, Unknown, 12/22/18) TRIMETHOPRIM (Verified Allergy, Unknown, 12/22/18) VANCOMYCIN (Verified Allergy, Unknown, 12/22/18) Meds Scheduled Budesonide/Formoterol Fumarate (Symbicort 160-4.5 Mcg Inhaler), 2 PUFF INH TWICE A DAY, (Reported) Cholecalciferol (Vitamin D3)* (Vitamin D*), 2,000 UNITS ORAL DAILY, (Reported) Docusate Sodium* (Colace*), 100 MG ORAL DAILY, (Reported) Duloxetine Hcl* (Cymbalta*), 60 MG ORAL DAILY, (Reported) Losartan Potassium* (Losartan Potassium*), 100 MG ORAL DAILY, (Reported) Oxybutynin Chloride (Oxybutynin Chloride), 10 MG ORAL DAILY, (Reported) Solifenacin Succinate (Vesicare*), 10 MG ORAL DAILY, (Reported) Valacyclovir Hcl (Valacyclovir), 500 MG ORAL DAILY, (Reported) Scheduled PRN Acetaminophen* (Acetaminophen 325MG Tablet*), 650 MG ORAL Q6H PRN for Mild Pain/ Temp > 100.5, (Reported) Diphenhydramine HCl (Candelaria-Dryl), 25 MG PO Q6HR PRN for Itching, (Reported) Hydrocodone Bit/Acetaminophen 5-325* (Loring 5-325*), 1 TAB ORAL Q6H PRN for For Pain, (Reported) Magnesium Hydroxide* (Milk Of Magnesia*), 30 ML ORAL DAILY PRN for Constipation, (Reported) Morphine Sulfate (Maria Luz), 10 MG ORAL Q12HR PRN for Pain Scale (6-10), (Reported ) Sumatriptan Succinate* (Imitrex*), 50 MG ORAL DAILY PRN MIGRAINE PRN for For Headache, (Reported) [Dulcolax Supp], 10 MG RC DAILY PRN for Constipation, (Reported) Healthcare decision maker SELF Resuscitation status Do Not Resuscitate Advanced Directive on File No ROS Respiratory: Denies: cough Cardiovascular: Reports: chest pain Gastrointestinal: Denies: abdominal pain Genitourinary: Denies: dysuria Neurological: Denies: headache PE General Appearance: no apparent distress, alert HEENT: atraumatic, anicteric, mucous membranes moist Neck: normal alignment, supple Respiratory/Chest: lungs clear, normal breath sounds Cardiovascular/Chest: normal rate, regular rhythm Abdomen: non tender, soft Extremities: calf tenderness Skin Exam: normal pigmentation, warm/dry 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: 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 grossly normal, no motor/sensory deficits, alert, oriented x 3 Last 24 Hour Vital Signs Date Time Temp Pulse Resp B/P (MAP) Pulse Ox O2 Delivery O2 Flow Rate FiO2 12/23/18 09:40 88 18 97 Room Air 21 12/23/18 09:33 85 18 97 Room Air 21 12/23/18 09:00 Room Air 12/23/18 08:46 99/50 12/23/18 08:00 88 12/23/18 08:00 97.8 91 18 99/50 (66) 95 12/23/18 04:00 96.6 84 18 119/50 (73) 95 12/23/18 01:15 Room Air 12/23/18 00:30 98.0 83 18 111/67 97 Room Air 12/23/18 00:00 88 12/23/18 00:00 96.8 86 20 138/111 (120) 96 12/22/18 21:50 84 18 Nasal Cannula 3.0 12/22/18 21:50 98.1 69 18 128/55 95 Room Air 12/22/18 21:44 98.1 84 18 95 Room Air Intake and Output 12/22/18 12/23/18 19:00 07:00 Intake Total 120 ml Balance 120 ml Intake Oral 120 ml Laboratory Tests Test 12/22/18 22:06 12/23/18 00:45 12/23/18 04:45 White Blood Count 9.8 K/UL (4.8-10.8) 6.4 K/UL (4.8-10.8) Red Blood Count 4.00 M/UL (4.20-5.40) L 4.01 M/UL (4.20-5.40) L Hemoglobin 11.6 G/DL (12.0-16.0) L 11.6 G/DL (12.0-16.0) L Hematocrit 34.1 % (37.0-47.0) L 35.4 % (37.0-47.0) L Mean Corpuscular Volume 85 FL (80-99) 88 FL (80-99) Mean Corpuscular Hemoglobin 29.1 PG (27.0-31.0) 29.1 PG (27.0-31.0) Mean Corpuscular Hemoglobin Concent 34.1 G/DL (32.0-36.0) 32.9 G/DL (32.0-36.0) Red Cell Distribution Width 12.7 % (11.6-14.8) 13.1 % (11.6-14.8) Platelet Count 190 K/UL (150-450) 180 K/UL (150-450) Mean Platelet Volume 7.9 FL (6.5-10.1) 8.7 FL (6.5-10.1) Neutrophils (%) (Auto) 76.2 % (45.0-75.0) H 67.7 % (45.0-75.0) Lymphocytes (%) (Auto) 14.9 % (20.0-45.0) L 19.7 % (20.0-45.0) L Monocytes (%) (Auto) 6.7 % (1.0-10.0) 9.1 % (1.0-10.0) Eosinophils (%) (Auto) 1.3 % (0.0-3.0) 2.5 % (0.0-3.0) Basophils (%) (Auto) 0.9 % (0.0-2.0) 1.0 % (0.0-2.0) Prothrombin Time 10.8 SEC (9.30-11.50) Prothromb Time International Ratio 1.0 (0.9-1.1) Activated Partial Thromboplast Time 28 SEC (23-33) D-Dimer 2.53 mg/L FEU (0.00-0.49) H Sodium Level 136 MMOL/L (136-145) 138 MMOL/L (136-145) Potassium Level 4.5 MMOL/L (3.5-5.1) 4.0 MMOL/L (3.5-5.1) Chloride Level 99 MMOL/L (98-107) 103 MMOL/L (98-107) Carbon Dioxide Level 30 MMOL/L (21-32) 30 MMOL/L (21-32) Anion Gap 7 mmol/L (5-15) 5 mmol/L (5-15) Blood Urea Nitrogen 12 mg/dL (7-18) 10 mg/dL (7-18) Creatinine 0.8 MG/DL (0.55-1.30) 0.7 MG/DL (0.55-1.30) Estimat Glomerular Filtration Rate mL/min (>60) mL/min (>60) Glucose Level 115 MG/DL (74-106) H 102 MG/DL (74-106) Lactic Acid Level 0.80 mmol/L (0.4-2.0) Calcium Level 9.4 MG/DL (8.5-10.1) 9.2 MG/DL (8.5-10.1) Total Bilirubin 0.8 MG/DL (0.2-1.0) 0.7 MG/DL (0.2-1.0) Aspartate Amino Transf (AST/SGOT) 56 U/L (15-37) H 34 U/L (15-37) Alanine Aminotransferase (ALT/SGPT) 48 U/L (12-78) 40 U/L (12-78) Alkaline Phosphatase 265 U/L (46-116) H 240 U/L (46-116) H Total Creatine Kinase 64 U/L (26-308) Creatine Kinase MB < 0.5 NG/ML (0.0-3.6) Creatine Kinase MB Relative Index 0.7 Troponin I 0.000 ng/mL (0.000-0.056) 0.002 ng/mL (0.000-0.056) Total Protein 6.8 G/DL (6.4-8.2) 6.3 G/DL (6.4-8.2) L Albumin 3.0 G/DL (3.4-5.0) L 2.8 G/DL (3.4-5.0) L Globulin 3.8 g/dL 3.5 g/dL Albumin/Globulin Ratio 0.8 (1.0-2.7) L 0.8 (1.0-2.7) L Urine Color Yellow Urine Appearance Slightly cloudy Urine pH 7 (4.5-8.0) Urine Specific [place] 1.005 (1.005-1.035) Urine Protein Negative (NEGATIVE) Urine Glucose (UA) Negative (NEGATIVE) Urine Ketones Negative (NEGATIVE) Urine Blood 1+ (NEGATIVE) H Urine Nitrite Positive (NEGATIVE) H Urine Bilirubin Negative (NEGATIVE) Urine Urobilinogen 1 MG/DL (0.0-1.0) H Urine Leukocyte Esterase 3+ (NEGATIVE) H Urine RBC 2-4 /HPF (0 - 2) H Urine WBC 10-15 /HPF (0 - 2) H Urine Squamous Epithelial Cells Occasional /LPF Urine Bacteria Few /HPF (NONE) Magnesium Level 1.9 MG/DL (1.8-2.4) Height (Feet): 5 Height (Inches): 5.00 Weight (Pounds): 176 Medications Current Medications Medications (Trade) Dose Ordered Sig/Gail Route PRN Reason Start Time Stop Time Status Last Admin Dose Admin Acetaminophen (Tylenol) 650 mg Q6H PRN ORAL Mild Pain/Temp > 100.5 12/23/18 02:45 01/22/19 02:44 Acetaminophen/ Hydrocodone Bitart ([place] 5/325) 1 tab Q6H PRN ORAL Moderate Pain (Pain Scale 4-6) 12/23/18 05:00 12/30/18 04:59 Budesonide/ Formoterol Fumarate (Symbicort 160/ 4.5) 2 puff BIDRT INH 12/23/18 10:00 01/22/19 09:59 12/23/18 09:33 Diphenhydramine HCl (Benadryl) 25 mg Q6H PRN ORAL Itching 12/23/18 02:45 01/22/19 02:44 Docusate Sodium (Colace) 100 mg DAILY ORAL 12/23/18 09:00 01/22/19 08:59 Duloxetine HCl (Cymbalta) 60 mg DAILY ORAL 12/23/18 09:00 01/22/19 08:59 12/23/18 08:46 Enoxaparin Sodium (Lovenox) 40 mg DAILY SUBQ 12/23/18 09:00 01/22/19 08:59 12/23/18 08:45 Iopamidol (Isovue-370 150ml) 150 ml NOW PRN INJ Radiology Procedure 12/22/18 22:30 12/24/18 22:17 Losartan Potassium (Cozaar) 100 mg DAILY ORAL 12/23/18 09:00 01/22/19 08:59 Magnesium Hydroxide (Mom) 30 ml DAILY PRN ORAL Constipation 12/23/18 02:45 01/22/19 02:44 Oxybutynin Chloride (Ditropan) 10 mg DAILY ORAL 12/23/18 09:00 01/22/19 08:59 12/23/18 08:45 Solifenacin (Vesicare) 10 mg DAILY ORAL 12/23/18 09:00 01/22/19 08:59 12/23/18 08:45 Sumatriptan Succinate (Imitrex) 50 mg DAILY PRN ORAL For Headache 12/23/18 02:45 01/22/19 02:44 Valacyclovir HCl (Valtrex) 500 mg EVERY 12 HOURS ORAL 12/23/18 09:00 01/22/19 08:59 12/23/18 08:43 Vitamin D (Vitamin D) 2,000 intlu DAILY ORAL 12/23/18 09:00 01/22/19 08:59 12/23/18 08:45 Assessment/Plan: # Bilateral Pulmonary emboli -- as noted on imaging of CTA imaging, reviewed in emr --> with hx of newly diagnosed dvt of lower ext bilaterally --> rule out underlying malignancy --> received Lovenox 1.5mg/kg sq daily --> okay to transition to NOAC --> as per pulm further eval/recs # DVT of the lower extremities --> received lonovex, to get NOAC once discharged --> 2 D echo per cards # Left pleural effusion # History of asthma # History of HTN --> sbp goal is <140 # Chronic pain --> on norco prn # Migraines The timing of this note does not necessarily reflect the time of the patient was seen. Greatly appreciate consultation! Gianni Emerson MD December 23, 2018 13:37
--- NOTE | 2018-12-23 13:54 | NUR ---
RD ASSESSMENT & RECOMMENDATIONS SEE CARE ACTIVITY FOR COMPLETE ASSESSMENT DAILY ESTIMATED NEEDS: Needs based on cardiac, pulmonary, obese 55kg adj 25-30 kcals/kg [id number] total kcals 1-1.5 g protein/kg 55-83 g total protein 20-25 mL/kg 5267-1580 total fluid mLs NUTRITION DIAGNOSIS: Chewing difficulty r/t poor dentition as evidenced by pt reports broken tooth, requesting puree texture diet. CURRENT DIET: cardiac, puree PO DIET RECOMMENDATIONS: * LOW NA DIET (texture as tolerated) * ADDITIONAL RECOMMENDATIONS: 1) SOLDERER ASSEMBLER EVAL for appropriate texture 2) Obtain a standing weight 3) Add Ensure 1 bottle daily/ currently w/ sub optimal po intake -> add snacks w/ cont poor po intake
--- NOTE | 2018-12-23 14:11 | Pulmonology Progress Note ---
Assessment/Plan Assessment/Plan Pulmonary Consultation HPI Patient is an 83-year-old female with history of previous DVT, Hypertension, Obesity, Asthma, Trigeminal neuralgia, chronic pain, migraines, spinal fusion who presented from [facility] with sharp left-sided stabbing pain, pleuritic, worse in the supine position, dyspnea.. Symptoms present for 4 days. She reports having blood clot in 1994, was on warfarin for this but not currently. Denies any history of excessive bleeding, no PUD, GERD. In ED she was found to have PE along with acute right popliteal DVT, left common femoral acute DVT. Started on therapeutic Lovenox Social History: No alcohol or tobacco Allergies: AMPICILLIN (Verified Allergy, Unknown, 12/22/18) CARBAMAZEPINE (Verified Allergy, Unknown, 12/22/18) CEPHALEXIN (Verified Allergy, Unknown, 12/22/18) GABAPENTIN (Verified Allergy, Unknown, 12/22/18) HYDROCHLOROTHIAZIDE (Verified Allergy, Unknown, 12/22/18) LOVASTATIN (Verified Allergy, Unknown, 12/22/18) MEXILETINE (Verified Allergy, Unknown, 12/22/18) NEOMYCIN (Verified Allergy, Unknown, 12/22/18) PENICILLINS (Verified Allergy, Unknown, 12/22/18) SULFAMETHOXAZOLE (Verified Allergy, Unknown, 12/22/18) TRIMETHOPRIM (Verified Allergy, Unknown, 12/22/18) VANCOMYCIN (Verified Allergy, Unknown, 12/22/18) ROS: Negative aside from above Physical Exam Vital Signs Noted General Appearance: no apparent distress, alert HEENT: atraumatic, anicteric, mucous membranes moist Neck: normal alignment, supple Respiratory/Chest: lungs clear, normal breath sounds, no respiratory distress, no accessory muscle use Cardiovascular/Chest: normal rate, regular rhythm Abdomen: non tender, soft Extremities: calf tenderness Skin Exam: normal pigmentation, warm/dry 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, no motor/sensory deficits, alert, oriented x 3 Date Time Temp Pulse Resp B/P (MAP) Pulse Ox O2 Delivery O2 Flow Rate FiO2 12/23/18 09:40 88 18 97 Room Air 21 12/23/18 09:33 85 18 97 Room Air 21 12/23/18 09:00 Room Air 12/23/18 08:46 99/50 12/23/18 08:00 88 5/10/19 08:00 97.8 91 18 99/50 (66) 95 12/23/18 04:00 96.6 84 18 119/50 (73) 95 12/23/18 01:15 Room Air 12/23/18 00:30 98.0 83 18 111/67 97 Room Air 12/23/18 00:00 88 12/23/18 00:00 96.8 86 20 138/111 (120) 96 12/22/18 21:50 84 18 Nasal Cannula 3.0 12/22/18 21:50 98.1 69 18 128/55 95 Room Air 12/22/18 21:44 98.1 84 18 95 Room Air Laboratory Tests Test 12/22/18 22:06 12/23/18 00:45 12/23/18 04:45 White Blood Count 9.8 K/UL (4.8-10.8) 6.4 K/UL (4.8-10.8) Red Blood Count 4.00 M/UL (4.20-5.40) L 4.01 M/UL (4.20-5.40) L Hemoglobin 11.6 G/DL (12.0-16.0) L 11.6 G/DL (12.0-16.0) L Hematocrit 34.1 % (37.0-47.0) L 35.4 % (37.0-47.0) L Mean Corpuscular Volume 85 FL (80-99) 88 FL (80-99) Mean Corpuscular Hemoglobin 29.1 PG (27.0-31.0) 29.1 PG (27.0-31.0) Mean Corpuscular Hemoglobin Concent 34.1 G/DL (32.0-36.0) 32.9 G/DL (32.0-36.0) Red Cell Distribution Width 12.7 % (11.6-14.8) 13.1 % (11.6-14.8) Platelet Count 190 K/UL (150-450) 180 K/UL (150-450) Mean Platelet Volume 7.9 FL (6.5-10.1) 8.7 FL (6.5-10.1) Neutrophils (%) (Auto) 76.2 % (45.0-75.0) H 67.7 % (45.0-75.0) Lymphocytes (%) (Auto) 14.9 % (20.0-45.0) L 19.7 % (20.0-45.0) L Monocytes (%) (Auto) 6.7 % (1.0-10.0) 9.1 % (1.0-10.0) Eosinophils (%) (Auto) 1.3 % (0.0-3.0) 2.5 % (0.0-3.0) Basophils (%) (Auto) 0.9 % (0.0-2.0) 1.0 % (0.0-2.0) Prothrombin Time 10.8 SEC (9.30-11.50) Prothromb Time International Ratio 1.0 (0.9-1.1) Activated Partial Thromboplast Time 28 SEC (23-33) D-Dimer 2.53 mg/L FEU (0.00-0.49) H Sodium Level 136 MMOL/L (136-145) 138 MMOL/L (136-145) Potassium Level 4.5 MMOL/L (3.5-5.1) 4.0 MMOL/L (3.5-5.1) Chloride Level 99 MMOL/L (98-107) 103 MMOL/L (98-107) Carbon Dioxide Level 30 MMOL/L (21-32) 30 MMOL/L (21-32) Anion Gap 7 mmol/L (5-15) 5 mmol/L (5-15) Blood Urea Nitrogen 12 mg/dL (7-18) 10 mg/dL (7-18) Creatinine 0.8 MG/DL (0.55-1.30) 0.7 MG/DL (0.55-1.30) Estimat Glomerular Filtration Rate mL/min (>60) mL/min (>60) Glucose Level 115 MG/DL (74-106) H 102 MG/DL (74-106) Lactic Acid Level 0.80 mmol/L (0.4-2.0) Calcium Level 9.4 MG/DL (8.5-10.1) 9.2 MG/DL (8.5-10.1) Total Bilirubin 0.8 MG/DL (0.2-1.0) 0.7 MG/DL (0.2-1.0) Aspartate Amino Transf (AST/SGOT) 56 U/L (15-37) H 34 U/L (15-37) Alanine Aminotransferase (ALT/SGPT) 48 U/L (12-78) 40 U/L (12-78) Alkaline Phosphatase 265 U/L (46-116) H 240 U/L (46-116) H Total Creatine Kinase 64 U/L (26-308) Creatine Kinase MB < 0.5 NG/ML (0.0-3.6) Creatine Kinase MB Relative Index 0.7 Troponin I 0.000 ng/mL (0.000-0.056) 0.002 ng/mL (0.000-0.056) Total Protein 6.8 G/DL (6.4-8.2) 6.3 G/DL (6.4-8.2) L Albumin 3.0 G/DL (3.4-5.0) L 2.8 G/DL (3.4-5.0) L Globulin 3.8 g/dL 3.5 g/dL Albumin/Globulin Ratio 0.8 (1.0-2.7) L 0.8 (1.0-2.7) L Urine Color Yellow Urine Appearance Slightly cloudy Urine pH 7 (4.5-8.0) Urine Specific [place] 1.005 (1.005-1.035) Urine Protein Negative (NEGATIVE) Urine Glucose (UA) Negative (NEGATIVE) Urine Ketones Negative (NEGATIVE) Urine Blood 1+ (NEGATIVE) H Urine Nitrite Positive (NEGATIVE) H Urine Bilirubin Negative (NEGATIVE) Urine Urobilinogen 1 MG/DL (0.0-1.0) H Urine Leukocyte Esterase 3+ (NEGATIVE) H Urine RBC 2-4 /HPF (0 - 2) H Urine WBC 10-15 /HPF (0 - 2) H Urine Squamous Epithelial Cells Occasional /LPF Urine Bacteria Few /HPF (NONE) Magnesium Level 1.9 MG/DL (1.8-2.4) Height (Feet): 5 Height (Inches): 5.00 Weight (Pounds): 176 Medications Current Medications Medications (Trade) Dose Ordered Sig/Gail Route PRN Reason Start Time Stop Time Status Last Admin Dose Admin Acetaminophen (Tylenol) 650 mg Q6H PRN ORAL Mild Pain/Temp > 100.5 12/23/18 02:45 01/22/19 02:44 Acetaminophen/ Hydrocodone Bitart (Teller 5/325) 1 tab Q6H PRN ORAL Moderate Pain (Pain Scale 4-6) 12/23/18 05:00 12/30/18 04:59 Budesonide/ Formoterol Fumarate (Symbicort 160/ 4.5) 2 puff BIDRT INH 12/23/18 10:00 01/22/19 09:59 12/23/18 09:33 Diphenhydramine HCl (Benadryl) 25 mg Q6H PRN ORAL Itching 12/23/18 02:45 01/22/19 02:44 Docusate Sodium (Colace) 100 mg DAILY ORAL 12/23/18 09:00 01/22/19 08:59 Duloxetine HCl (Cymbalta) 60 mg DAILY ORAL 12/23/18 09:00 01/22/19 08:59 12/23/18 08:46 Enoxaparin Sodium (Lovenox) 40 mg DAILY SUBQ 12/23/18 09:00 01/22/19 08:59 12/23/18 08:45 Iopamidol (Isovue-370 150ml) 150 ml NOW PRN INJ Radiology Procedure 12/22/18 22:30 12/24/18 22:17 Losartan Potassium (Cozaar) 100 mg DAILY ORAL 12/23/18 09:00 01/22/19 08:59 Magnesium Hydroxide (Mom) 30 ml DAILY PRN ORAL Constipation 12/23/18 02:45 01/22/19 02:44 Oxybutynin Chloride (Ditropan) 10 mg DAILY ORAL 12/23/18 09:00 01/22/19 08:59 12/23/18 08:45 Solifenacin (Vesicare) 10 mg DAILY ORAL 12/23/18 09:00 01/22/19 08:59 12/23/18 08:45 Sumatriptan Succinate (Imitrex) 50 mg DAILY PRN ORAL For Headache 12/23/18 02:45 01/22/19 02:44 Valacyclovir HCl (Valtrex) 500 mg EVERY 12 HOURS ORAL 12/23/18 09:00 01/22/19 08:59 12/23/18 08:43 Vitamin D (Vitamin D) 2,000 intlu DAILY ORAL 12/23/18 09:00 01/22/19 08:59 12/23/18 08:45 Assessment #Bilateral Pulmonary Emboli, possible infarction left lower zone, small left effusion #History of asthma #Hypertension #Obesity #Trigeminal neuralgia #Chronic pain, migraines #spinal fusion Plan: Continue Lovenox, transition to PO AC per Hematology O2 PRN Symbicort HHN PRN Hold off Antibiotics for now TIP STRETCHER Meds Subjective ROS Limited/Unobtainable: No Respiratory: Reports: pleuritic pain Allergies: Coded Allergies: AMPICILLIN (Verified Allergy, Unknown, 12/22/18) CARBAMAZEPINE (Verified Allergy, Unknown, 12/22/18) CEPHALEXIN (Verified Allergy, Unknown, 12/22/18) GABAPENTIN (Verified Allergy, Unknown, 12/22/18) HYDROCHLOROTHIAZIDE (Verified Allergy, Unknown, 12/22/18) LOVASTATIN (Verified Allergy, Unknown, 12/22/18) MEXILETINE (Verified Allergy, Unknown, 12/22/18) NEOMYCIN (Verified Allergy, Unknown, 12/22/18) PENICILLINS (Verified Allergy, Unknown, 12/22/18) SULFAMETHOXAZOLE (Verified Allergy, Unknown, 12/22/18) TRIMETHOPRIM (Verified Allergy, Unknown, 12/22/18) VANCOMYCIN (Verified Allergy, Unknown, 12/22/18) Objective Last 24 Hour Vital Signs Date Time Temp Pulse Resp B/P (MAP) Pulse Ox O2 Delivery O2 Flow Rate FiO2 12/23/18 12:00 97.3 91 20 124/62 (82) 97 12/23/18 12:00 88 12/23/18 09:40 88 18 97 Room Air 21 12/23/18 09:33 85 18 97 Room Air 21 12/23/18 09:00 Room Air 12/23/18 08:46 99/50 12/23/18 08:00 88 12/23/18 08:00 97.8 91 18 99/50 (66) 95 12/23/18 04:00 96.6 84 18 119/50 (73) 95 12/23/18 01:15 Room Air 12/23/18 00:30 98.0 83 18 111/67 97 Room Air 12/23/18 00:00 88 12/23/18 00:00 96.8 86 20 138/111 (120) 96 12/22/18 21:50 84 18 Nasal Cannula 3.0 12/22/18 21:50 98.1 69 18 128/55 95 Room Air 12/22/18 21:44 98.1 84 18 95 Room Air Intake and Output 12/22/18 12/23/18 19:00 07:00 Intake Total 120 ml Balance 120 ml Intake Oral 120 ml Laboratory Tests 12/22/18 22:06: White Blood Count 9.8, Red Blood Count 4.00L, Hemoglobin 11.6L, Hematocrit 34.1L , Mean Corpuscular Volume 85, Mean Corpuscular Hemoglobin 29.1, Mean Corpuscular Hemoglobin Concent 34.1, Red Cell Distribution Width 12.7, Platelet Count 190, Mean Platelet Volume 7.9, Neutrophils (%) (Auto) 76.2H, Lymphocytes ( %) (Auto) 14.9L, Monocytes (%) (Auto) 6.7, Eosinophils (%) (Auto) 1.3, Basophils (%) (Auto) 0.9, Prothrombin Time 10.8, Prothromb Time International Ratio 1.0, Activated Partial Thromboplast Time 28, D-Dimer 2.53H, Sodium Level 136, Potassium Level 4.5, Chloride Level 99, Carbon Dioxide Level 30, Anion Gap 7, Blood Urea Nitrogen 12, Creatinine 0.8, Estimat Glomerular Filtration Rate , Glucose Level 115H, Lactic Acid Level 0.80, Calcium Level 9.4, Total Bilirubin 0.8, Aspartate Amino Transf (AST/SGOT) 56H, Alanine Aminotransferase (ALT/SGPT) 48, Alkaline Phosphatase 265H, Total Creatine Kinase 64, Creatine Kinase MB < 0.5, Creatine Kinase MB Relative Index 0.7, Troponin I 0.000, Total Protein 6.8 , Albumin 3.0L, Globulin 3.8, Albumin/Globulin Ratio 0.8L 12/23/18 00:45: Urine Color Yellow, Urine Appearance Slightly cloudy, Urine pH 7, Urine Specific [place] 1.005, Urine Protein Negative, Urine Glucose (UA) Negative, Urine Ketones Negative, Urine Blood 1+H, Urine Nitrite PositiveH, Urine Bilirubin Negative, Urine Urobilinogen 1H, Urine Leukocyte Esterase 3+H, Urine RBC 2-4H, Urine WBC 10-15H, Urine Squamous Epithelial Cells Occasional, Urine Bacteria Few 12/23/18 04:45: White Blood Count 6.4, Red Blood Count 4.01L, Hemoglobin 11.6L, Hematocrit 35.4L , Mean Corpuscular Volume 88, Mean Corpuscular Hemoglobin 29.1, Mean Corpuscular Hemoglobin Concent 32.9, Red Cell Distribution Width 13.1, Platelet Count 180, Mean Platelet Volume 8.7, Neutrophils (%) (Auto) 67.7, Lymphocytes (% ) (Auto) 19.7L, Monocytes (%) (Auto) 9.1, Eosinophils (%) (Auto) 2.5, Basophils (%) (Auto) 1.0, Sodium Level 138, Potassium Level 4.0, Chloride Level 103, Carbon Dioxide Level 30, Anion Gap 5, Blood Urea Nitrogen 10, Creatinine 0.7, Estimat Glomerular Filtration Rate , Glucose Level 102, Calcium Level 9.2, Total Bilirubin 0.7, Aspartate Amino Transf (AST/SGOT) 34, Alanine Aminotransferase (ALT/SGPT) 40, Alkaline Phosphatase 240H, Troponin I 0.002, Total Protein 6.3L, Albumin 2.8L, Globulin 3.5, Albumin/Globulin Ratio 0.8L, Magnesium Level 1.9 Current Medications Medications (Trade) Dose Ordered Sig/Gail Route PRN Reason Start Time Stop Time Status Last Admin Dose Admin Acetaminophen (Tylenol) 650 mg Q6H PRN ORAL Mild Pain/Temp > 100.5 12/23/18 02:45 01/22/19 02:44 Acetaminophen/ Hydrocodone Bitart (Teller 5/325) 1 tab Q6H PRN ORAL Moderate Pain (Pain Scale 4-6) 12/23/18 05:00 12/30/18 04:59 Budesonide/ Formoterol Fumarate (Symbicort 160/ 4.5) 2 puff BIDRT INH 12/23/18 10:00 01/22/19 09:59 12/23/18 09:33 Diphenhydramine HCl (Benadryl) 25 mg Q6H PRN ORAL Itching 12/23/18 02:45 01/22/19 02:44 Docusate Sodium (Colace) 100 mg DAILY ORAL 12/23/18 09:00 01/22/19 08:59 Duloxetine HCl (Cymbalta) 60 mg DAILY ORAL 12/23/18 09:00 01/22/19 08:59 12/23/18 08:46 Enoxaparin Sodium (Lovenox) 120 mg Q24H SUBQ 12/23/18 15:00 01/22/19 14:59 Iopamidol (Isovue-370 150ml) 150 ml NOW PRN INJ Radiology Procedure 12/22/18 22:30 12/24/18 22:17 Losartan Potassium (Cozaar) 100 mg DAILY ORAL 12/23/18 09:00 01/22/19 08:59 Magnesium Hydroxide (Mom) 30 ml DAILY PRN ORAL Constipation 12/23/18 02:45 01/22/19 02:44 Oxybutynin Chloride (Ditropan) 10 mg DAILY ORAL 12/23/18 09:00 01/22/19 08:59 12/23/18 08:45 Solifenacin (Vesicare) 10 mg DAILY ORAL 12/23/18 09:00 01/22/19 08:59 12/23/18 08:45 Sumatriptan Succinate (Imitrex) 50 mg DAILY PRN ORAL For Headache 12/23/18 02:45 01/22/19 02:44 Valacyclovir HCl (Valtrex) 500 mg EVERY 12 HOURS ORAL 12/23/18 09:00 01/22/19 08:59 12/23/18 08:43 Vitamin D (Vitamin D) 2,000 intlu DAILY ORAL 12/23/18 09:00 01/22/19 08:59 12/23/18 08:45 Telly Nice MD December 23, 2018 14:11
--- NOTE | 2018-12-23 14:12 | Cardiology Report ---
APPROVED REPORT EXAM: Two-dimensional and M-mode echocardiogram with Doppler and color Doppler. INDICATION Chest Pain M-Mode DIMENSIONS IVSd0.8 (0.7-1.1cm)Left Atrium (MM)2.9 (1.6-4.0cm) LVDd5.3 (3.5-5.6cm)Aortic Root3.1 (2.0-3.7cm) PWd1.1 (0.7-1.1cm)Aortic Cusp Exc.1.5 (1.5-2.0cm) LVDs3.6 (2.5-4.0cm) Normal left ventricular chamber size, systolic function and wall motion. Left ventricular ejection fraction estimated to be 60-65 %. No evidence of left ventricular hypertrophy. No evidence of pericardial effusion. Mild left atrial enlargement. Right cardiac chamber sizes are within normal limits. Focal aortic valve sclerosis with adequate cusp excursion. Thickened mitral valve leaflets with normal excursion. Mitral annulus and aortic root calcification. Pulmonic valve not well visualized. Normal tricuspid valve structure. IVC at normal size with physiologic collapse. A color flow and spectral Doppler study was performed and revealed: Mild to moderate aortic regurgitation. Mild mitral regurgitation. Mitral diastolic velocities suggest reduced left ventricular relaxation c/w mild LV diastolic dysfunction (Grade I ). Trace to mild tricuspid regurgitation. Tricuspid systolic velocities suggests peak right ventricular systolic pressure of 33 mmHg.
--- NOTE | 2018-12-23 14:17 | Cardiology Report ---
APPROVED REPORT EKG Measurement Heart [id number] Normal sinus rhythm Cannot rule out Anterior infarct, age undetermined Abnormal ECG
[2018-12-23] MEDS ORDERED: Enoxaparin 120 mg inj SUBQ SCH (15:00)
[2018-12-23] MEDS ORDERED: Albuterol/Ipratropium 3ml neb HHN PRN (15:30)
[2018-12-23 16:00] VITALS: BP 121/60
--- NOTE | 2018-12-23 17:00 | NUR ---
RECEIVED CALL FROM [employer]K [employer] AT [facility] [place]. PER VIVEK, PT HAS BED AVAILABLE AT [facility] IN ROOM [id number] [phone]. VIVEK (ALEJANDRA) CAN BE CONTACTED AT [phone]. CALLED RYAN AND LEFT MESSAGE TO MAKE AWARE. CONTACT INFO FOR [employer] PROVIDED IN VOICEMAIL.
--- NOTE | 2018-12-23 17:23 | Consultation ---
History of Present Illness General Chief Complaint: Chest Pain Present Illness Allergies: Coded Allergies: AMPICILLIN (Verified Allergy, Unknown, 12/22/18) CARBAMAZEPINE (Verified Allergy, Unknown, 12/22/18) CEPHALEXIN (Verified Allergy, Unknown, 12/22/18) GABAPENTIN (Verified Allergy, Unknown, 12/22/18) HYDROCHLOROTHIAZIDE (Verified Allergy, Unknown, 12/22/18) LOVASTATIN (Verified Allergy, Unknown, 12/22/18) MEXILETINE (Verified Allergy, Unknown, 12/22/18) NEOMYCIN (Verified Allergy, Unknown, 12/22/18) PENICILLINS (Verified Allergy, Unknown, 12/22/18) SULFAMETHOXAZOLE (Verified Allergy, Unknown, 12/22/18) TRIMETHOPRIM (Verified Allergy, Unknown, 12/22/18) VANCOMYCIN (Verified Allergy, Unknown, 12/22/18) Medication History Scheduled Budesonide/Formoterol Fumarate (Symbicort 160-4.5 Mcg Inhaler), 2 PUFF INH TWICE A DAY, (Reported) Cholecalciferol (Vitamin D3)* (Vitamin D*), 2,000 UNITS ORAL DAILY, (Reported) Docusate Sodium* (Colace*), 100 MG ORAL DAILY, (Reported) Duloxetine Hcl* (Cymbalta*), 60 MG ORAL DAILY, (Reported) Losartan Potassium* (Losartan Potassium*), 100 MG ORAL DAILY, (Reported) Oxybutynin Chloride (Oxybutynin Chloride), 10 MG ORAL DAILY, (Reported) Solifenacin Succinate (Vesicare*), 10 MG ORAL DAILY, (Reported) Valacyclovir Hcl (Valacyclovir), 500 MG ORAL DAILY, (Reported) Scheduled PRN Acetaminophen* (Acetaminophen 325MG Tablet*), 650 MG ORAL Q6H PRN for Mild Pain/ Temp > 100.5, (Reported) Diphenhydramine HCl (Candelaria-Dryl), 25 MG PO Q6HR PRN for Itching, (Reported) Hydrocodone Bit/Acetaminophen 5-325* ([place] 5-325*), 1 TAB ORAL Q6H PRN for For Pain, (Reported) Magnesium Hydroxide* (Milk Of Magnesia*), 30 ML ORAL DAILY PRN for Constipation, (Reported) Morphine Sulfate (Maria Luz), 10 MG ORAL Q12HR PRN for Pain Scale (6-10), (Reported ) Sumatriptan Succinate* (Imitrex*), 50 MG ORAL DAILY PRN MIGRAINE PRN for For Headache, (Reported) [Dulcolax Supp], 10 MG RC DAILY PRN for Constipation, (Reported) Patient History Healthcare decision maker SELF Resuscitation status Do Not Resuscitate Advanced Directive on File No Physical Exam Last 24 Hour Vital Signs Date Time Temp Pulse Resp B/P (MAP) Pulse Ox O2 Delivery O2 Flow Rate FiO2 12/23/18 12:00 97.3 91 20 124/62 (82) 97 12/23/18 12:00 88 12/23/18 09:40 88 18 97 Room Air 21 12/23/18 09:33 85 18 97 Room Air 21 12/23/18 09:00 Room Air 12/23/18 08:46 99/50 12/23/18 08:00 88 12/23/18 08:00 97.8 91 18 99/50 (66) 95 12/23/18 04:00 96.6 84 18 119/50 (73) 95 12/23/18 01:15 Room Air 12/23/18 00:30 98.0 83 18 111/67 97 Room Air 12/23/18 00:00 88 12/23/18 00:00 96.8 86 20 138/111 (120) 96 12/22/18 21:50 84 18 Nasal Cannula 3.0 12/22/18 21:50 98.1 69 18 128/55 95 Room Air 12/22/18 21:44 98.1 84 18 95 Room Air Intake and Output 12/22/18 12/23/18 18:59 06:59 Intake Total 120 ml Balance 120 ml Intake Oral 120 ml Laboratory Tests Test 12/22/18 22:06 12/23/18 00:45 12/23/18 04:45 White Blood Count 9.8 K/UL (4.8-10.8) 6.4 K/UL (4.8-10.8) Red Blood Count 4.00 M/UL (4.20-5.40) L 4.01 M/UL (4.20-5.40) L Hemoglobin 11.6 G/DL (12.0-16.0) L 11.6 G/DL (12.0-16.0) L Hematocrit 34.1 % (37.0-47.0) L 35.4 % (37.0-47.0) L Mean Corpuscular Volume 85 FL (80-99) 88 FL (80-99) Mean Corpuscular Hemoglobin 29.1 PG (27.0-31.0) 29.1 PG (27.0-31.0) Mean Corpuscular Hemoglobin Concent 34.1 G/DL (32.0-36.0) 32.9 G/DL (32.0-36.0) Red Cell Distribution Width 12.7 % (11.6-14.8) 13.1 % (11.6-14.8) Platelet Count 190 K/UL (150-450) 180 K/UL (150-450) Mean Platelet Volume 7.9 FL (6.5-10.1) 8.7 FL (6.5-10.1) Neutrophils (%) (Auto) 76.2 % (45.0-75.0) H 67.7 % (45.0-75.0) Lymphocytes (%) (Auto) 14.9 % (20.0-45.0) L 19.7 % (20.0-45.0) L Monocytes (%) (Auto) 6.7 % (1.0-10.0) 9.1 % (1.0-10.0) Eosinophils (%) (Auto) 1.3 % (0.0-3.0) 2.5 % (0.0-3.0) Basophils (%) (Auto) 0.9 % (0.0-2.0) 1.0 % (0.0-2.0) Prothrombin Time 10.8 SEC (9.30-11.50) Prothromb Time International Ratio 1.0 (0.9-1.1) Activated Partial Thromboplast Time 28 SEC (23-33) D-Dimer 2.53 mg/L FEU (0.00-0.49) H Sodium Level 136 MMOL/L (136-145) 138 MMOL/L (136-145) Potassium Level 4.5 MMOL/L (3.5-5.1) 4.0 MMOL/L (3.5-5.1) Chloride Level 99 MMOL/L (98-107) 103 MMOL/L (98-107) Carbon Dioxide Level 30 MMOL/L (21-32) 30 MMOL/L (21-32) Anion Gap 7 mmol/L (5-15) 5 mmol/L (5-15) Blood Urea Nitrogen 12 mg/dL (7-18) 10 mg/dL (7-18) Creatinine 0.8 MG/DL (0.55-1.30) 0.7 MG/DL (0.55-1.30) Estimat Glomerular Filtration Rate mL/min (>60) mL/min (>60) Glucose Level 115 MG/DL (74-106) H 102 MG/DL (74-106) Lactic Acid Level 0.80 mmol/L (0.4-2.0) Calcium Level 9.4 MG/DL (8.5-10.1) 9.2 MG/DL (8.5-10.1) Total Bilirubin 0.8 MG/DL (0.2-1.0) 0.7 MG/DL (0.2-1.0) Aspartate Amino Transf (AST/SGOT) 56 U/L (15-37) H 34 U/L (15-37) Alanine Aminotransferase (ALT/SGPT) 48 U/L (12-78) 40 U/L (12-78) Alkaline Phosphatase 265 U/L (46-116) H 240 U/L (46-116) H Total Creatine Kinase 64 U/L (26-308) Creatine Kinase MB < 0.5 NG/ML (0.0-3.6) Creatine Kinase MB Relative Index 0.7 Troponin I 0.000 ng/mL (0.000-0.056) 0.002 ng/mL (0.000-0.056) Total Protein 6.8 G/DL (6.4-8.2) 6.3 G/DL (6.4-8.2) L Albumin 3.0 G/DL (3.4-5.0) L 2.8 G/DL (3.4-5.0) L Globulin 3.8 g/dL 3.5 g/dL Albumin/Globulin Ratio 0.8 (1.0-2.7) L 0.8 (1.0-2.7) L Urine Color Yellow Urine Appearance Slightly cloudy Urine pH 7 (4.5-8.0) Urine Specific [place] 1.005 (1.005-1.035) Urine Protein Negative (NEGATIVE) Urine Glucose (UA) Negative (NEGATIVE) Urine Ketones Negative (NEGATIVE) Urine Blood 1+ (NEGATIVE) H Urine Nitrite Positive (NEGATIVE) H Urine Bilirubin Negative (NEGATIVE) Urine Urobilinogen 1 MG/DL (0.0-1.0) H Urine Leukocyte Esterase 3+ (NEGATIVE) H Urine RBC 2-4 /HPF (0 - 2) H Urine WBC 10-15 /HPF (0 - 2) H Urine Squamous Epithelial Cells Occasional /LPF Urine Bacteria Few /HPF (NONE) Magnesium Level 1.9 MG/DL (1.8-2.4) Height (Feet): 5 Height (Inches): 5.00 Weight (Pounds): 176 Medications Current Medications Medications (Trade) Dose Ordered Sig/Gail Route PRN Reason Start Time Stop Time Status Last Admin Dose Admin Acetaminophen (Tylenol) 650 mg Q6H PRN ORAL Mild Pain/Temp > 100.5 12/23/18 02:45 01/22/19 02:44 Acetaminophen/ Hydrocodone Bitart ([place] 5/325) 1 tab Q6H PRN ORAL Moderate Pain (Pain Scale 4-6) 12/23/18 05:00 12/30/18 04:59 Albuterol/ Ipratropium (Albuterol/ Ipratropium) 3 ml Q6H PRN HHN Shortness of Breath 12/23/18 15:30 12/28/18 15:29 Budesonide/ Formoterol Fumarate (Symbicort 160/ 4.5) 2 puff BIDRT INH 12/23/18 10:00 01/22/19 09:59 12/23/18 09:33 Diphenhydramine HCl (Benadryl) 25 mg Q6H PRN ORAL Itching 12/23/18 02:45 01/22/19 02:44 Docusate Sodium (Colace) 100 mg DAILY ORAL 12/23/18 09:00 01/22/19 08:59 Duloxetine HCl (Cymbalta) 60 mg DAILY ORAL 12/23/18 09:00 01/22/19 08:59 12/23/18 08:46 Enoxaparin Sodium (Lovenox) 120 mg Q24H SUBQ 12/23/18 15:00 01/22/19 14:59 Iopamidol (Isovue-370 150ml) 150 ml NOW PRN INJ Radiology Procedure 12/22/18 22:30 12/24/18 22:17 Losartan Potassium (Cozaar) 100 mg DAILY ORAL 12/23/18 09:00 01/22/19 08:59 Magnesium Hydroxide (Mom) 30 ml DAILY PRN ORAL Constipation 12/23/18 02:45 01/22/19 02:44 Oxybutynin Chloride (Ditropan) 10 mg DAILY ORAL 12/23/18 09:00 01/22/19 08:59 12/23/18 08:45 Solifenacin (Vesicare) 10 mg DAILY ORAL 12/23/18 09:00 01/22/19 08:59 12/23/18 08:45 Sumatriptan Succinate (Imitrex) 50 mg DAILY PRN ORAL For Headache 12/23/18 02:45 01/22/19 02:44 Valacyclovir HCl (Valtrex) 500 mg EVERY 12 HOURS ORAL 12/23/18 09:00 01/22/19 08:59 12/23/18 08:43 Vitamin D (Vitamin D) 2,000 intlu DAILY ORAL 12/23/18 09:00 01/22/19 08:59 12/23/18 08:45 Telly Velazco MD December 23, 2018 17:23
[2018-12-23] MEDS ORDERED: LOSARTAN POTAS100 MG ORAL (18:21)
[2018-12-23] MEDS ORDERED: OXYBUTYNIN CHLO10 MG PO (18:21)
[2018-12-23] MEDS ORDERED: BISACODYL10 M1 RC (18:21)
[2018-12-23] MEDS ORDERED: VALACYCLOVIR500 MG ORAL ×2 (18:22→19:19)
--- NOTE | 2018-12-23 18:33 | NUR ---
PT TO BE DISCHARGED TO [facility] TODAY. WILL MAKE DATA CONTROL CLERK SUPERVISOR RN AWARE. CALLED [facility] AND SPOKE TO DONNY (HYGIENE ASSISTANT) WHO WAS MADE AWARE PT WILL BE DISCHARGED TO [facility]. DONNY CONFIRMED PT HAS NO NEXT OF KIN. Addendum: 12/23/18 at 1844 by Carmen Quiroga RN PT WILL GO TO ROOM 556 BED A, CONTACT INFO FOR UNIT AT [facility] IS [phone]. SHE WILL GO UNDER MD LAYA MCCLELLAND'S CARE.
--- NOTE | 2018-12-23 18:39 | NUR ---
NURSE NOTES: Spoke to Dr Chambers about transferring this patient to [facility], he said if he has a bed send her. Bed is 556-A and The admitting doctor is Jose Antonio Lomeli in the telemetry uNit.
--- NOTE | 2018-12-23 19:00 | NUR ---
FULL REPORT GIVEN TO MARNIE REYES MADE AWARE PT IS TO BE DISCHARGED TO [facility] TODAY AT 2000. DISCHARGE PACKET DONE AND ENDORSED TO MARNIE. Addendum: 12/23/18 at 2005 by Carmen Quiroga RN CONTACT INFO INCLUDING PHONE NUMBER GIVEN TO MARNIE FOR [facility]. PT WILL GO TO ROOM 552L.
[2018-12-23] MEDS ORDERED: ACETAMINOPHEN325 M1 ORAL ×2 (19:10)
[2018-12-23] MEDS ORDERED: VITAMIN D-32000 UNI1 PO (19:12)
[2018-12-23] MEDS ORDERED: BENADRYL25 M3 PO (19:13)
[2018-12-23] MEDS ORDERED: COLACE100 MG ORAL (19:13)
[2018-12-23] MEDS ORDERED: CYMBALTA20 MG ORAL (19:13)
[2018-12-23] MEDS ORDERED: LOVENOX300 MG/3 M SUBQ (19:14)
[2018-12-23] MEDS ORDERED: COZAAR100 MG ORAL (19:16)
[2018-12-23] MEDS ORDERED: DUONEB 0.5-3(2.53 ML HHN (19:16)
[2018-12-23] MEDS ORDERED: MOM30 ML ORAL (19:17)
[2018-12-23] MEDS ORDERED: OXYBUTYNIN CHLOR5 M1 ORAL (19:18)
[2018-12-23] MEDS ORDERED: IMITREX50 MG ORAL (19:19)
--- NOTE | 2018-12-23 19:20 | NUR ---
NURSE NOTES: Received report from ALEJANDRA Morales. Patient in bed asleep showing no signs of acute distress. Respiration even and non labored on room air. VS stable. Bed in lowest position and wheels locked. Bed alarm on. Call light within reach. All needs attended and met. Will continue to monitor.
[2018-12-23 20:00] VITALS: BP 92/46
--- NOTE | 2018-12-23 20:47 | NUR ---
NURSE NOTES: Called [facility] and spoke with AJ Nurse ([phone]) and still figuring out which nurse will receive the patient and will call back to receive report.
--- NOTE | 2018-12-23 22:05 | NUR ---
NURSE NOTES: Called [facility] to follow [facility] on ETA and estimated another 45 mins.
--- NOTE | 2018-12-23 22:24 | NUR ---
NURSE NOTES: Called [facility] and spoke with the charge nurse and advised that nurse receiving the pt. is Rufina ([phone]). Nurse Rufina is busy at the moment and requested to call back in 10 mins.
--- NOTE | 2018-12-23 23:43 | NUR ---
NURSE NOTES: Called [facility] and gave report to ALEJANDRA Holloway. Patient in bed asleep showing no signs of acute distress. Respiration even and non labored on room air. No SOB. no chest pain. IV line patent and intact. VS stable. All needs attended and met. Awaiting for [facility] for pharmacy picking tech.
--- NOTE | 2018-12-24 00:59 | NUR ---
Homeless Discharge: Patient is being transferred to [facility]. pt Awake, alert and oriented x4. After care instructions, Patient verbalized understanding. Patient checked belonging list upon discharge, pt taking all her belongings with her nothing missing. All medical devices such as telemonitor and ID band were removed. pt left unit in stable condition.
--- NOTE | 2018-12-24 01:01 | Consultation ---
History of Present Illness General Chief Complaint: Chest Pain Present Illness Allergies: Coded Allergies: AMPICILLIN (Verified Allergy, Unknown, 12/22/18) CARBAMAZEPINE (Verified Allergy, Unknown, 12/22/18) CEPHALEXIN (Verified Allergy, Unknown, 12/22/18) GABAPENTIN (Verified Allergy, Unknown, 12/22/18) HYDROCHLOROTHIAZIDE (Verified Allergy, Unknown, 12/22/18) LOVASTATIN (Verified Allergy, Unknown, 12/22/18) MEXILETINE (Verified Allergy, Unknown, 12/22/18) NEOMYCIN (Verified Allergy, Unknown, 12/22/18) PENICILLINS (Verified Allergy, Unknown, 12/22/18) SULFAMETHOXAZOLE (Verified Allergy, Unknown, 12/22/18) TRIMETHOPRIM (Verified Allergy, Unknown, 12/22/18) VANCOMYCIN (Verified Allergy, Unknown, 12/22/18) Medication History Scheduled Budesonide/Formoterol Fumarate (Symbicort 160-4.5 Mcg Inhaler), 2 PUFF INH TWICE A DAY, (Reported) Budesonide/Formoterol Fumarate (Symbicort 160-4.5 Mcg Inhaler), 2 PUFF INH TWICE A DAY, (Reported) Cholecalciferol (Vitamin D3) (Vitamin D-3), 2,000 UNIT PO DAILY, (Reported) Cholecalciferol (Vitamin D3)* (Vitamin D*), 2,000 UNITS ORAL DAILY, (Reported) Docusate Sodium* (Colace*), 100 MG ORAL DAILY, (Reported) Docusate Sodium* (Colace*), 100 MG ORAL DAILY, (Reported) Duloxetine (Cymbalta), 60 MG ORAL DAILY, (Reported) Duloxetine Hcl* (Cymbalta*), 60 MG ORAL DAILY, (Reported) Enoxaparin Sodium (Lovenox), 120 MG SUBQ DAILY, (Reported) Losartan Potassium (Losartan Potassium), 100 MG ORAL DAILY, (Reported) Losartan Potassium (Cozaar), 100 MG ORAL DAILY, (Reported) Oxybutynin Chloride (Oxybutynin Chloride Er), 10 MG PO DAILY, (Reported) Oxybutynin Chloride (Oxybutynin Chloride), 10 MG ORAL DAILY, (Reported) Solifenacin Succinate (Vesicare*), 10 MG ORAL DAILY, (Reported) Solifenacin Succinate (Vesicare*), 10 MG ORAL DAILY, (Reported) Sumatriptan Succinate* (Imitrex*), 50 MG ORAL DAILY PRN MIGRAINE, (Reported) Valacyclovir Hcl* (Valtrex*), 500 MG ORAL DAILY, (Reported) Valacyclovir Hcl* (Valtrex*), 500 MG ORAL TWICE A DAY, (Reported) Scheduled PRN Acetaminophen* (Acetaminophen 325MG Tablet*), 650 MG ORAL Q6H PRN for Mild Pain/ Temp > 100.5, (Reported) Acetaminophen* (Acetaminophen 325MG Tablet*), 650 MG ORAL Q4H PRN for ELEVATED TEMP, (Reported) Acetaminophen* (Acetaminophen 325MG Tablet*), 650 MG ORAL Q6H PRN for ELEVATED TEMP, (Reported) Bisacodyl (Bisacodyl), 10 MG RC PRN PRN for Constipation, (Reported) Diphenhydramine HCl (Candelaria-Dryl), 25 MG PO Q6HR PRN for Itching, (Reported) Diphenhydramine HCl (Benadryl), 25 MG PO Q6HR PRN for Itching, (Reported) Hydrocodone Bit/Acetaminophen 5-325* ([place] 5-325*), 1 TAB ORAL Q6H PRN for MODERATE TO SEVERE PAIN, (Reported) Hydrocodone Bit/Acetaminophen 5-325* ([place] 5-325*), 1 TAB ORAL Q6H PRN for Moderate Pain (Pain Scale 4-6), (Reported) Ipratropium/Albuterol Sulfate (DuoNeb 0.5-3(2.5)mg/3ml), 3 ML HHN Q6HR PRN for Shortness of Breath, (Reported) Magnesium Hydroxide (Milk of Magnesia), 30 ML ORAL DAILY PRN for Constipation, ( Reported) Magnesium Hydroxide* (Milk Of Magnesia*), 30 ML ORAL DAILY PRN for Constipation, (Reported) Morphine Sulfate (Maria Luz), 10 MG ORAL Q12HR PRN for Pain Scale (6-10), (Reported ) Sumatriptan Succinate* (Imitrex*), 50 MG ORAL DAILY PRN MIGRAINE PRN for For Headache, (Reported) Discontinued Medications Losartan Potassium* (Losartan Potassium*), 100 MG ORAL DAILY, (Reported) Discontinued Reason: Prescription changed Oxybutynin Chloride (Oxybutynin Chloride), 10 MG ORAL DAILY, (Reported) Discontinued Reason: Prescription changed Valacyclovir Hcl (Valacyclovir), 500 MG ORAL DAILY, (Reported) Discontinued Reason: Prescription changed [Dulcolax Supp], 10 MG RC DAILY PRN for Constipation, (Reported) Discontinued Reason: Prescription changed Patient History Healthcare decision maker SELF Resuscitation status Do Not Resuscitate Advanced Directive on File No Physical Exam Last 24 Hour Vital Signs Date Time Temp Pulse Resp B/P (MAP) Pulse Ox O2 Delivery O2 Flow Rate FiO2 12/23/18 22:30 83 18 97 Room Air 21 12/23/18 22:30 83 18 97 Room Air 21 12/23/18 21:00 Room Air 12/23/18 20:00 87 12/23/18 20:00 98.4 84 18 92/46 (61) 99 12/23/18 16:00 83 12/23/18 16:00 98.1 84 20 121/60 (80) 95 12/23/18 12:00 97.3 91 20 124/62 (82) 97 12/23/18 12:00 88 12/23/18 09:40 88 18 97 Room Air 21 12/23/18 09:33 85 18 97 Room Air 21 12/23/18 09:00 Room Air 12/23/18 08:46 99/50 12/23/18 08:00 88 12/23/18 08:00 97.8 91 18 99/50 (66) 95 12/23/18 04:00 96.6 84 18 119/50 (73) 95 12/23/18 01:15 Room Air Intake and Output 12/23/18 12/24/18 19:00 07:00 Intake Total 360 ml Output Total 400 ml Balance -40 ml Intake Oral 360 ml Output Urine Total 400 ml Laboratory Tests Test 12/23/18 04:45 White Blood Count 6.4 K/UL (4.8-10.8) Red Blood Count 4.01 M/UL (4.20-5.40) L Hemoglobin 11.6 G/DL (12.0-16.0) L Hematocrit 35.4 % (37.0-47.0) L Mean Corpuscular Volume 88 FL (80-99) Mean Corpuscular Hemoglobin 29.1 PG (27.0-31.0) Mean Corpuscular Hemoglobin Concent 32.9 G/DL (32.0-36.0) Red Cell Distribution Width 13.1 % (11.6-14.8) Platelet Count 180 K/UL (150-450) Mean Platelet Volume 8.7 FL (6.5-10.1) Neutrophils (%) (Auto) 67.7 % (45.0-75.0) Lymphocytes (%) (Auto) 19.7 % (20.0-45.0) L Monocytes (%) (Auto) 9.1 % (1.0-10.0) Eosinophils (%) (Auto) 2.5 % (0.0-3.0) Basophils (%) (Auto) 1.0 % (0.0-2.0) Sodium Level 138 MMOL/L (136-145) Potassium Level 4.0 MMOL/L (3.5-5.1) Chloride Level 103 MMOL/L (98-107) Carbon Dioxide Level 30 MMOL/L (21-32) Anion Gap 5 mmol/L (5-15) Blood Urea Nitrogen 10 mg/dL (7-18) Creatinine 0.7 MG/DL (0.55-1.30) Estimat Glomerular Filtration Rate mL/min (>60) Glucose Level 102 MG/DL (74-106) Calcium Level 9.2 MG/DL (8.5-10.1) Magnesium Level 1.9 MG/DL (1.8-2.4) Total Bilirubin 0.7 MG/DL (0.2-1.0) Aspartate Amino Transf (AST/SGOT) 34 U/L (15-37) Alanine Aminotransferase (ALT/SGPT) 40 U/L (12-78) Alkaline Phosphatase 240 U/L (46-116) H Troponin I 0.002 ng/mL (0.000-0.056) Total Protein 6.3 G/DL (6.4-8.2) L Albumin 2.8 G/DL (3.4-5.0) L Globulin 3.5 g/dL Albumin/Globulin Ratio 0.8 (1.0-2.7) L Height (Feet): 5 Height (Inches): 5.00 Weight (Pounds): 176 Medications Current Medications Medications (Trade) Dose Ordered Sig/Gail Route PRN Reason Start Time Stop Time Status Last Admin Dose Admin Acetaminophen (Tylenol) 650 mg Q6H PRN ORAL Mild Pain/Temp > 100.5 12/23/18 02:45 01/22/19 02:44 Acetaminophen/ Hydrocodone Bitart ([place] 5/325) 1 tab Q6H PRN ORAL Moderate Pain (Pain Scale 4-6) 12/23/18 05:00 12/30/18 04:59 Albuterol/ Ipratropium (Albuterol/ Ipratropium) 3 ml Q6H PRN HHN Shortness of Breath 12/23/18 15:30 12/28/18 15:29 Budesonide/ Formoterol Fumarate (Symbicort 160/ 4.5) 2 puff BIDRT INH 12/23/18 10:00 01/22/19 09:59 12/23/18 22:30 Diphenhydramine HCl (Benadryl) 25 mg Q6H PRN ORAL Itching 12/23/18 02:45 01/22/19 02:44 Docusate Sodium (Colace) 100 mg DAILY ORAL 12/23/18 09:00 01/22/19 08:59 Duloxetine HCl (Cymbalta) 60 mg DAILY ORAL 12/23/18 09:00 01/22/19 08:59 12/23/18 08:46 Enoxaparin Sodium (Lovenox) 120 mg Q24H SUBQ 12/23/18 15:00 01/22/19 14:59 Iopamidol (Isovue-370 150ml) 150 ml NOW PRN INJ Radiology Procedure 12/22/18 22:30 12/24/18 22:17 Losartan Potassium (Cozaar) 100 mg DAILY ORAL 12/23/18 09:00 01/22/19 08:59 Magnesium Hydroxide (Mom) 30 ml DAILY PRN ORAL Constipation 12/23/18 02:45 01/22/19 02:44 Oxybutynin Chloride (Ditropan) 10 mg DAILY ORAL 12/23/18 09:00 01/22/19 08:59 12/23/18 08:45 Solifenacin (Vesicare) 10 mg DAILY ORAL 12/23/18 09:00 01/22/19 08:59 12/23/18 08:45 Sumatriptan Succinate (Imitrex) 50 mg DAILY PRN ORAL For Headache 12/23/18 02:45 01/22/19 02:44 Valacyclovir HCl (Valtrex) 500 mg EVERY 12 HOURS ORAL 12/23/18 09:00 01/22/19 08:59 12/23/18 08:43 Vitamin D (Vitamin D) 2,000 intlu DAILY ORAL 12/23/18 09:00 01/22/19 08:59 12/23/18 08:45 Elzbieta Vincent N.P. December 24, 2018 01:01
--- NOTE | 2018-12-28 07:54 | Discharge Summary ---
Discharge Summary Discharge Summary _ DATE OF ADMISSION: 12/22/2018 DATE OF DISCHARGE: 12/24/2018 DISCHARGED BY: Jericho Cisneros REASON FOR ADMISSION: 83 years old female with past medical history of hypertension, asthma, trigeminal neuralgia, chronic pain, migraines, history of spinal fusion, presented from [facility] with sharp, left-sided , stabbing chest pain , which was rated 10 out of 10 on a scale of 1-10. Patient reported worsening pain in supine position along with dyspnea and and pleuritic pain. Symptoms were present for 4 days. Patient reported history of blood clot in 1994, for which she was on Coumadin. Currently not on any blood thinners. Patient denies history of excessive bleeding. No history of peptic ulcer disease or GERD. Upon evaluation in the emergency department CTA chest with contrast revealed acute bilateral pulmonary emboli. Ground glass opacification left lung base and a small left pleural effusion. Developing pulmonary infarction versus pneumonia. Bilateral lower extremity revealed acute thrombus in the popliteal vein in the right leg. Acute thrombus in the common femoral, superficial femoral, popliteal and calf vein left leg. Patient was started on anticoagulation with Lovenox and admitted to telemetry floor for further management CONSULTANTS: shirt line operator Dr. Velazco pulmonary Dr. Nice geriatric assistant/oncologist Dr. Emerson [facility] COURSE: Patient admitted to telemetry floor. Cardiology, pulmonology, and hematology consult were requested. Echocardiogram revealed preserved ejection fraction of 60 to 65% with no evidence of left ventricular hypertrophy. No evidence of pericardial effusion. No evidence of wall motion abnormality. Mild to moderate aortic regurgitation. Mild mitral regurgitation. Right ventricular systolic pressure of 33. Supplemental oxygen provided as needed to keep pulse oximetry above 92%. Pulse oximetry was stable on room air. Pulmonary toilet was on standby as needed. Symbicort continued. [place] Opener recommended to hold off antibiotics for now. Lovenox continued. Lining Inserter recommended switching to NOAC upon discharge. Blood pressure was managed here with angiotensin receptor argenis and remained stable. Pain management was addressed, and pain was controlled. Bowel regimen instituted. Imitrex was on board as needed. Supportive care provided. Patient required transfer to contracted facility; i.e. [facility] for further management. Patient was stable for transfer. FINAL DIAGNOSES: Bilateral pulmonary emboli DVT bilateral lower extremity Possible infarction left lower lobe Small left pleural effusion History of asthma Hypertension Obesity Trigeminal neuralgia Chronic pain Migraines History of spinal fusion DISCHARGE MEDICATIONS: See Medication Reconciliation list. DISCHARGE INSTRUCTIONS: Patient was transferred to [facility] as contracted facility. I have been assigned to dictate discharge summary for this account. I was not involved in the patient's management. Naomy Pradhan NP December 28, 2018 07:54
--- NOTE | 2018-12-28 15:45 | NUR ---
*-* INSURANCE *-* DISCAHRGE SUMMARY HAS BEEN FAXED TO: [facility] F:[phone]
== END 2018-12-24 00:50 | disposition short-term general hospital (02) | DRG 176 ==
LOC: EDBD 21:43 → EMR 22:20 → 2E 23:20 → EDBEDREQ 12-23 00:04
DX: I26.99 Other pulmonary embolism without acute cor pulmonale (principal); I82.431 Acute embolism and thrombosis of right popliteal vein; I82.412 Acute embolism and thrombosis of left femoral vein; Z68.32 Body mass index [BMI] 32.0-32.9, adult; Z88.4 Allergy status to anesthetic agent; Z88.0 Allergy status to penicillin; Z88.2 Allergy status to sulfonamides; Z88.8 Allergy status to other drugs, medicaments and biological substances; Z66 Do not resuscitate; G89.29 Other chronic pain; I34.0 Nonrheumatic mitral (valve) insufficiency; I35.1 Nonrheumatic aortic (valve) insufficiency; J45.909 Unspecified asthma, uncomplicated; Z98.1 Arthrodesis status; I10 Essential (primary) hypertension; E66.9 Obesity, unspecified; G50.0 Trigeminal neuralgia; Z88.6 Allergy status to analgesic agent; Z88.1 Allergy status to other antibiotic agents
CPT/HCPCS: 36415; 71045; 71275; 80053; 81003; 82550; 82553; 83605; 83735; 84484; 85025; 85379; 85610; 85730; 87040; 87081; 87086; 87181; 93005; 93306; 93970; 94640; 96372; 99285